=== PATIENT | female | born 1945 | race Caucasian/White ===

== ENCOUNTER → 2018-03-04 13:40 | Outpatient (CLI) | payer MEDICARE, OTHER, SELFPAY ==
[2018-01-07 14:41] VITALS: BMI 30.7
--- NOTE | 2018-03-04 | DI.MG.S_ITS ---
BILATERAL DIGITAL SCREENING MAMMOGRAM 3D/2D WITH CAD: 03/04/2018 CLINICAL: Routine screening. Comparison is made to exams dated: 02/06/2017 mammogram, 02/02/2016 mammogram, and 01/26/2015 mammogram - [facility]. The tissue of both breasts is predominantly fatty. Current study was also evaluated with a Computer Aided Detection (CAD) system. No significant masses, calcifications, or other findings are seen in either breast. There has been no significant interval change. IMPRESSION: NEGATIVE There is no mammographic evidence of malignancy. A 1 year screening mammogram is recommended. This exam was interpreted at Station ID: [id number]. NOTE: For mammograms, a report in lay terms will be sent to the patient. Approximately 15% of breast malignancies will not be visualized mammographically. In the management of a palpable breast mass, a negative mammogram must not discourage biopsy of a clinically suspicious lesion. Electronically Signed By: Leandro babcock/elvi:03/04/2018 16:44:09 letter sent: Normal Exam ACR BI-RADS Category 1: Negative 3341F
== END ==
PROVIDERS: Family Provider Family Medicine; PCP Family Medicine; Visit Provider Family Medicine
DX: Z12.31 Encounter for screening mammogram for malignant neoplasm of breast (principal)
CPT/HCPCS: 77063; 77067

== ENCOUNTER → 2018-06-13 14:53 | Outpatient (CLI) | payer MEDICARE, OTHER, SELFPAY ==
[2018-01-07 14:41] VITALS: BMI 30.7
--- NOTE | 2018-06-13 | DI.RAD.S_ITS ---
PROCEDURE: XR SHOULDER RT MIN 2V INDICATIONS: Bursitis of right shoulder TECHNIQUE: 3 views of the shoulder were acquired. COMPARISON: None. FINDINGS: Bones: No fractures or dislocations. No suspicious bony lesions. Visualized ribs appear intact. Mild acromioclavicular and glenohumeral degenerative joint disease. Soft tissues: No suspicious soft tissue calcifications. IMPRESSION: Mild degenerative joint disease. Dictated by: Radu Alcaraz M.D. on 06/13/2018 at 16:08 Approved by: Radu Alcaraz M.D. on 06/13/2018 at 16:11
== END ==
PROVIDERS: PCP Family Medicine; Visit Provider Family Medicine
DX: M75.51 Bursitis of right shoulder (principal); M19.011 Primary osteoarthritis, right shoulder
CPT/HCPCS: 73030; 88305

== ENCOUNTER → 2019-01-23 15:46 | Outpatient (CLI) | payer MEDICARE, OTHER, SELFPAY ==
[2018-01-07 14:41] VITALS: BMI 30.7
[2019-01-23 16:23] LABS: BUN Creatinine Ratio 41.4 (6-22); Blood Urea Nitrogen 29 mg/dL (7-17); Estimated Glomerular Filt Rate > 60.0 mL/min (>60)
== END ==
PROVIDERS: Family Provider Family Medicine; PCP Family Medicine; Visit Provider Urology
DX: R31.0 Gross hematuria (principal)
CPT/HCPCS: 36415; 82565; 84520

== ENCOUNTER → 2019-01-31 08:55 | Outpatient (CLI) | payer MEDICARE, OTHER, SELFPAY ==
[2018-01-07 14:41] VITALS: BMI 30.7
--- NOTE | 2019-01-31 09:06 | DI.CT.S_ITS ---
PROCEDURE: CT ABDOMEN PELVIS WO/W CON INDICATIONS: Gross hematuria TECHNIQUE: Optional 5 mm thick noncontrast images acquired from the diaphragm to the symphysis pubis. After the administration of intravenous contrast, 5 mm thick images acquired from the diaphragm to the symphysis pubis after a 10-minute delay. 2 mm thick coronal and sagittal reformats were then performed of the kidneys and ureters. For radiation dose reduction, the following was used: automated exposure control, adjustment of mA and/or kV according to patient size. COMPARISON: [facility], CT, CT-IVP, 03/12/2008, 8:45. [facility], CT, IVP (ABD & PEL WWO CONTRAST), 07/30/2012, 11:33. FINDINGS: Image quality: Excellent. Lung bases: Likely atelectasis is seen at the left lung base. Heart size is normal. Urinary system: Both kidneys are normal in size, without hydronephrosis. On precontrast images, there is a 2 mm nonobstructing stone seen at the inferior pole the left kidney, as on series 2 image 29. No perinephric fat stranding. There is normal bilateral renal enhancement. A nonenhancing water density cyst is seen at the posterior aspect of the inferior pole of the left kidney that measures 3.5 cm. Renal calyces appear normal in morphology when filled with contrast. Opacified portions of both ureters demonstrate normal caliber. Bladder wall thickness is normal. No calcified bladder stones. There is mass effect upon the bladder from calcified uterine fibroids. Other solid organs: Liver is normal in size and enhancement. Incidental note is made of focal fatty infiltration adjacent to the falciform ligament, which is not regarded to be pathologic. Gallbladder wall is not thickened. Biliary system is non dilated. Pancreas enhances normally. Spleen is normal in size and enhancement. No adrenal nodules. Peritoneum and bowel: Bowel loops demonstrate normal wall thickness and caliber. No free fluid or air. Incidental note is made of a normal-appearing appendix. Diverticulosis is seen, without findings of active diverticulitis. Nodes and vessels: No retroperitoneal or mesenteric adenopathy by size criteria. Aorta and inferior vena cava are normal in size. Atherosclerotic calcification is noted. Abdominal wall: No ventral hernias. Pelvis: No pathologic free pelvic fluid. No inguinal hernias or adenopathy. Calcified uterine fibroids are seen, which demonstrate mass effect upon the bladder. Incidental note is again made of a lipoma on the right between the proximal femur and the ischial tuberosity. Bones: No suspicious bony lesions. No vertebral body compression fractures. Age-appropriate bony degenerative changes are seen, which are worst at the L5-S1 level. IMPRESSION: A 2 mm nonobstructing stone is seen at the inferior pole of the left kidney. No renal masses are seen. No ureteral masses or bladder masses can be seen. At the inferior pole of the left kidney, there is a simple cyst, without suspicious features, as before. Calcified uterine fibroids are seen, with associated mass effect upon the bladder. Incidental note is made of: Focal fatty liver infiltration Normal appendix Diverticulosis is seen, without findings of active diverticulitis. Focal L5-S1 degenerative change Right hip lipoma Dictated by: Saad Wilson M.D. on 01/31/2019 at 10:38 Approved by: Saad Wilson M.D. on 01/31/2019 at 10:43
[2019-01-31 09:26] LABS: BUN Creatinine Ratio 28.3 (6-22); Blood Urea Nitrogen 17 mg/dL (7-17); Estimated Glomerular Filt Rate > 60.0 mL/min (>60)
== END ==
PROVIDERS: Family Provider Family Medicine; PCP Family Medicine; Visit Provider Urology
DX: R31.0 Gross hematuria (principal); N20.0 Calculus of kidney; N28.1 Cyst of kidney, acquired; D17.39 Benign lipomatous neoplasm of skin and subcutaneous tissue of other sites; D25.9 Leiomyoma of uterus, unspecified; K57.90 Diverticulosis of intestine, part unspecified, without perforation or abscess without bleeding; M47.817 Spondylosis without myelopathy or radiculopathy, lumbosacral region; K76.0 Fatty (change of) liver, not elsewhere classified
CPT/HCPCS: 36415; 74178; 82565; 84520; Q9967

== ENCOUNTER → 2019-03-19 12:17 | Outpatient (CLI) | payer MEDICARE, OTHER, SELFPAY ==
[2018-01-07 14:41] VITALS: BMI 30.7
--- NOTE | 2019-03-19 | DI.MG.S_ITS ---
BILATERAL DIGITAL SCREENING MAMMOGRAM 3D/2D WITH CAD: 03/19/2019 CLINICAL: Routine screening. Comparison is made to exams dated: 03/04/2018 mammogram, 02/06/2017 mammogram, 02/02/2016 mammogram, and 01/26/2015 mammogram - [facility]. There are scattered fibroglandular elements in both breasts. Current study was also evaluated with a Computer Aided Detection (CAD) system. No significant masses, calcifications, or other findings are seen in either breast. There has been no significant interval change. IMPRESSION: NEGATIVE There is no mammographic evidence of malignancy. A 1 year screening mammogram is recommended. This exam was interpreted at Station ID: [id number]. NOTE: For mammograms, a report in lay terms will be sent to the patient. Approximately 15% of breast malignancies will not be visualized mammographically. In the management of a palpable breast mass, a negative mammogram must not discourage biopsy of a clinically suspicious lesion. Electronically Signed By: Alban nuñez/elvi:03/20/2019 12:35:03 letter sent: Normal Exam ACR BI-RADS Category 1: Negative 3341F
== END ==
PROVIDERS: Family Provider Family Medicine; PCP Family Medicine; Visit Provider Family Medicine
DX: Z12.31 Encounter for screening mammogram for malignant neoplasm of breast (principal)
CPT/HCPCS: 77063; 77067

== ENCOUNTER 2019-05-22 09:25 | Day surgery (SDC) | payer MEDICARE, OTHER, SELFPAY ==
[2018-01-07 14:41] VITALS: BMI 30.7
[2019-05-15 13:46] VITALS: BMI 30.7
[2019-05-22] VITALS (8 sets, daily range): BP systolic 105–134; BP diastolic 62–79; PULSE 75–81; RESP 15–16; TEMP 36.1–36.4; O2SAT 93–98; BMI 29.5
--- NOTE | 2019-05-22 | PATH_ITS ---
[facility] Accession Number: [id number] . 01 Material submitted: . uterus - UTERUS, BILATERAL FALLOPIAN TUBES AND BILATERAL OVARIES . 02 Diagnosis: Uterus, Bilateral Fallopian Tubes and Bilateral Ovaries, Laparoscopic Supracervical Hysterectomy with Bilateral Salpingo-oophorectomy (Weight Morcellated Specimen 69 grams): Endometrium with features of cystic atrophy; negative for glandular hyperplasia, cytologic atypia, and malignancy. Myometrium with multile intramural leiomyomas (0.2-2.5 cm in greatest dimension). Ovaries with benign inclusions and rare follicular cysts. Fallopian tubes x2 with no significant histomorphologic abnormality. Negative for atypia or malignancy. [facility] 05/26/2019 1546 Local . 02 Electronically signed: . Anabella Florentino MD, Pathologist NPI- [id number] . 01 Gross description: . Received in formalin, labeled uterus, bilateral fallopian tubes and ovaries, is a morcellated uterus (69 grams, 9.5 x 8.3 x 3.2 cm in aggregate), two ovaries (ovary #1-2.5 x 0.9 x 0.5 cm; ovary #2-2.3 x 1.0 x 0.7 cm), and two fimbriated fallopian tubes (tube #1: length-5.5 cm, diameter-0.3 cm; tube #2: length-5.6 cm, diameter-0.3 cm). The cervix is absent. The specimen cannot be oriented and the endometrium and myometrium cannot be grossly measured. The parenchyma is rai and contains multiple solid firm white whorled well-circumscribed homogeneous nodules (0.2 x 0.2 x 0.1 cm-2.5 x 2.3 x 2.0 cm). The ovaries have pale yellow shiny bosselated serosa and rai-yellow solid firm parenchyma. The fallopian tubes have rai smooth shiny serosa and rai unremarkable lumens. Section code: (A1-A5) uterine parenchyma, retail account representative; (A6) ovary #1, retail account representative serial sections; (A7) ovary #2, retail account representative serial sections; (A8) fallopian tube #1, retail account representative serial sections; (A9) fimbria #1, bivalved, entirely submitted; (A10) fallopian tube #2, retail account representative serial sections; (A11) fimbria #2, bivalved, entirely submitted. ([id number]) /MRV 05/23/2019 1244 Local . 02 Pathologist provided ICD-10: D25.9 . 02 CPT . 467517 Specimen Comment: A duplicate report has been generated due to demographic updates. Performed at: 01 [facility] [address] [id number] MD Leandro Conroy MD Phone: [phone] Performed at: 02 [facility] [address] [place] [id number] MD Harika Jackson MD Phone: [phone]
[2019-05-22] MEDS: LACTATED RINGERS 1,000 ML 100 ML IV ×2 (10:20→13:44)
--- NOTE | 2019-05-22 10:35 | PM.PREOP ---
Pre-operative Note Interval Note History & Physical reviewed/Exam performed by Physician: Yes Changes to H&P: No
[2019-05-22] MEDS: CEFAZOLIN 2 GM/100 ML FROZ.PIGGY IV (10:39)
--- NOTE | 2019-05-22 11:24 | SUR.OPER ---
Lithotomy on padded OR bed. Hollis Pad Positioner under torso. Head on pillow, arms padded and tucked at sides. Legs secured in padded yellow fins stirrups.
[2019-05-22] MEDS: BUPIVACAINE 0.5% W/ EPI (PF) VIAL 30 ML INJ (11:29)
[2019-05-22] MEDS: ACETAMINOPHEN IV 1,000 MG/100 ML VIAL 400 MG IV (11:30)
[2019-05-22] MEDS: ROPIVACAINE 0.2% PF 2 MG/ML 10ML AMP 20 ML INJ (11:30)
--- NOTE | 2019-05-22 12:49 | SUR.PHASEI ---
Per Dr. Redmond, pt will be d/c'd home, hastings is to be d/c'd and pt. is to void prior to d/c home. Will continue to monitor pt. for void.
--- NOTE | 2019-05-22 12:55 | SUR.PHASEI ---
pt up to BSC at this time, attempting to void due to sensation
--- NOTE | 2019-05-22 13:03 | SUR.PHASEI ---
Pt. cont's to have the 'urge' to void but cannot yet. IV fluids will continue
--- NOTE | 2019-05-22 13:11 | SUR.PHASEI ---
pt. up to BSC approx. 10 min., no void as of yet, assisted back to bed and IVF will continue.
[2019-05-22] MEDS: OXYCODONE/ACETAMINOPHEN 5/325 TABLET 1 TAB PO (13:33)
--- NOTE | 2019-05-22 13:56 | SUR.PHASEII ---
report given to Westley Mclaughlin RN
--- NOTE | 2019-05-22 14:23 | SUR.PHASEII ---
Phase 2 note: patient ambulated to bathroom. Gait steady. Mild cramping discomfort. Voided Clear yellow urine 350 ml without difficulty. Stable to dress for discharge to home. at bedside. Arnoldo WELLER, RN-BC
--- NOTE | 2019-05-22 14:46 | SUR.PHASEII ---
Phase 2 discharge note: Discharge instructions reviewed with patient and with good understanding. Tolerated PO without nausea. Pain level 2/10. Mild cramping. IV d/c'd canula intact. Discharge to home, wheelchair to car home with .
--- NOTE | 2019-05-25 14:18 | PM.GYNOP.1 ---
Operative Date/Time/Diagnoses Date of procedure: 05/22/19 Time of procedure: 12:30 Pre-op diagnosis: Fibroid uterus Pelvic pain Post-op diagnosis: same Procedure & Clinicians Procedure: Procedures Operation Date: 05/22/19 10:45 Actual Procedures Side Surgeon p Laparoscopic Supracervical Hysterectomy w/ bilateral salpingo-oophrectomy Maral Redmond MD Indications: Fibroid year Pelvic pain Surgeon: Maral Redmond Helicopter Utility Aircrewman: Klaudia Jeff Anesthesia Type: General Operative Notes Findings: 9 week size multi fibroid uterus Normal tubes and ovaries Normal liver and gallbladder Closure Type: primary Specimen(s): left tube & ovary, right tube & ovary and uterus Applied: catheter (Removed at the end of the case) Estimated blood loss (mL): 75 Blood products transfused: none Procedure in detail: The patient was taken to the operating room where she was placed in the dorsal supine position. After adequate general endotracheal anesthesia was achieved, she was placed in the dorsal lithotomy position, and prepped and draped in the usual sterile fashion. A timeout was performed. A bivalve speculum was placed into the vagina and the anterior lip of the cervix grasped with a single-tooth tenaculum. The cervical os was sequentially dilated until the ZUMI uterine manipulator could pass easily into the endometrial cavity. The single-tooth tenaculum was removed from the anterior lip of the cervix, and the bivalve speculum was removed from the vagina. Attention was then turned to the abdomen where 6 mL of half percent Marcaine with epinephrine were injected in the umbilical fold. A 5 mm incision was made. The veress needle was placed into the peritoneal cavity, and its placement confirmed by aspiration and drop test. The veress needle was removed. A 5 mm trocar was placed without difficulty. 2 other incisions were made midway between the pubic symphysis and umbilicus after 5 mL of half percent Marcaine with epinephrine were injected. These were 5 mm incisions. Two, 5 mm trochars were placed under direct visualization. The right tube and ovary were grasped with an atraumatic grasper. Using the plasma kinetic with settings of 40 W the utero-ovarian vessels were cauterized and then cut on the right side. The cornua of the uterus was then grasped with an atraumatic grasper. The round ligament and broad ligament were cauterized and cut with plasma kinetic. Hemostasis was achieved. The bladder flap was created using the plasma kinetic with cautery and cut longterm across. The uterine arteries on the right side were extensively cauterized with plasma kinetic. All of this was repeated on the left side. The remainder of the bladder flap was created using the plasma kinetic, and the bladder taken down off the lower uterine segment and cervix. Using the [place], the cervix was amputated from the uterus 2 cm above the uterosacral ligaments, after the ZUMI uterine manipulator was removed from the uterus and a moistened sponge stick was placed in the vagina. There was a small amount of bleeding noted from the posterior and left edge of the cervix, and this was cauterized for hemostasis. 6 mL of half percent Marcaine with epinephrine were injected above the pubic symphysis. A 12mm incision was made. A 12 mm trocar was placed under direct visualization. The trochar was removed. An Endobag was placed through the suprapubic incision and the uterus and tubes and ovaries were placed into the Endobag. The uterus was morcellated in approximately 6 pieces. The tubes and ovaries were also removed from the Endobag. The Endobag was removed from the peritoneal cavity. The pelvis was copiously irrigated with warm normal saline. No bleeding was noted. 20 mL of 0.2% ropivacaine were placed over the pelvic pedicles. The instruments were removed from the abdomen. The CO2 was allowed to escape. The suprapubic incision was closed on the fascia with 0 Vicryl. All of the incisions were closed with 4-0 undyed Biosyn in a subcuticular fashion. Steri strips, 2x2's and op sites were placed over the incisions. The moistened sponge stick was removed from the vagina. Sponge, lap, and instrument counts were correct x 2. The patient tolerated the procedure well, was taken to PACU in stable condition. Complications: none Post-operative Condition: stable Disposition: PACU Plan for aftercare: Home after recovery
== END 2019-05-22 14:46 | disposition home or self-care (01) ==
LOC: OR 12:26 → AC 12:27
PROVIDERS: PCP Family Medicine; Visit Provider Obstetrics & Gynecology
PROC: 0UT94ZL Resection of Uterus, Supracervical, Percutaneous Endoscopic Approach (ICD-10-PCS; CPT 58542; principal; 2019-05-22 10:45)
DX: D25.9 Leiomyoma of uterus, unspecified (principal)
CPT/HCPCS: 58542; J0131; J0690; J1100; J2250; J2405; J2704; J2710; J2795; J3010

== ENCOUNTER 2019-11-03 08:33 | Day surgery (SDC) | payer MEDICARE, OTHER, SELFPAY ==
[2018-01-07 14:41] VITALS: BMI 30.7
--- NOTE | 2019-11-03 08:55 | PM.HP.1 ---
History of Present Illness History of Present Illness Date Patient Seen: 11/03/19 Time Patient Seen: 08:55 Chief complaint: 13727 Narrative: Patient presents for colorectal screening. They had previous colonoscopy in 2013 notable for adenomatous polyps which were removed.. No personal or family history of colon cancer. On further history denies any recent gastrointestinal symptoms. No nausea, vomiting, abdominal pain, loss of appetite, unexplained weight loss, change in bowel habits, diarrhea, constipation, melena, hematochezia, or bright red blood per rectum. Patient History Medical History 1st degree AV block (Chronic) Arthritis (Chronic) Back pain (Chronic) Bladder polyp (Chronic) Cataracts, bilateral (Chronic ~2008) Cervical spine fracture (Resolved) Chicken pox (Resolved) Colon polyps (Chronic ~2013) Fibroids (Inactive) Fractures (Resolved ~1981) Hearing loss (Chronic ~2008) Heavy menstrual period (Resolved) Hematuria (Chronic ~2018) Hypertension (Chronic ~1999) Impaired vision (Chronic) Incontinence (Chronic) Interstitial cystitis (Chronic) Measles (Resolved) Melanoma (Chronic) Melanoma (Inactive ~2004) Painful menstrual periods (Resolved) Skin cancer (Inactive ~2004) Sleep apnea (Chronic ~2017) Tinnitus (Chronic ~1999) Urinary frequency (Chronic) Urinary urgency (Chronic) Surgical History Anesthesia (Resolved) Arm fracture, left (Resolved) H/O total knee replacement (Resolved) History of bilateral salpingo-oophorectomy (Acute ~05/22/19) History of hysteroscopy (Resolved ~04/2014) History of third molar tooth extraction (Resolved) History of total knee replacement (Resolved ~12/2017) Perforated eardrum (Resolved ~02/2017) S/P bunionectomy (Resolved) S/P excision of lipoma (Resolved) S/P laparoscopic supracervical hysterectomy (Acute ~05/22/19) S/P left knee arthroscopy (Resolved) Status post dilation and curettage (Resolved) Status post dilation and curettage (Resolved 05/15/14) Family & Social History Family History Father Cancer Mother Stroke Brother Parkinson's disease Social History: household members spouse Tobacco & Substance use: Smoking Status Never smoker alcohol intake current alcohol intake frequency 0-2 drinks per day Substance Use Type does not use Meds Home Medications and Allergies Home Medications Medication Instructions Recorded Confirmed Type Elmiron 100 mg PO BID #0 07/04/17 11/03/19 History amitriptyline 50 mg PO HS #0 07/04/17 11/03/19 History amlodipine [Norvasc] 5 mg PO QDAY #0 07/04/17 11/03/19 History lovastatin 20 mg PO QDAY #0 07/04/17 11/03/19 History tamsulosin [Flomax] 0.4 mg PO BEDTIME #0 07/04/17 11/03/19 History aspirin 81 mg PO BEDTIME 01/02/18 11/03/19 History Calcium 500 500 mg PO BID 01/07/18 11/03/19 History biotin 5,000 mcg PO QDAY 01/07/18 11/03/19 History cholecalciferol (vitamin D3) 2,000 units PO QDAY 01/07/18 11/03/19 History Allergies Allergy/AdvReac Type Severity Reaction Status Date / Time No Known Allergies Allergy Verified 07/14/19 13:58 Review of Systems Review of Systems Narrative: A 10 point review of systems is negative except as noted in the HPI Exam Narrative Exam Narrative: General-no acute distress, well nourished HEENT-moist mucous membranes, no scleral icterus Neck-supple, no lymphadenopathy Chest- non labored respirations, clear to auscultation bilaterally Cardiac-regular rate no peripheral edema Abdomen-soft, nontender, non distended Extremities-warm, well perfused Neurological-alert and oriented, no focal deficits Assessment & Plan Assessment and plan (1) Screening for colon cancer: Current visit: Yes Status: Acute Assessment & Plan narrative: The patient requires colorectal screening and colonoscopy is recommended. Technical details were discussed. Risks, benefits, alternatives explained. Risks including but not limited to myocardial infarction, aspiration, bleeding, pain, missed lesion, incomplete examination, need for further radiographic studies, colonic perforation, and need for major abdominal surgery were discussed. All questions were answered to their satisfaction, and they are in agreement with this plan.
[2019-11-03 09:06] VITALS: BP 119/76; PULSE 83; RESP 16; TEMP 36.6; O2SAT 93; BMI 28.7
[2019-11-03] MEDS: SODIUM CHLORIDE 0.9% 1,000 ML 200 ML IV (09:21)
--- NOTE | 2019-11-03 10:25 | PM.OP.ENDO ---
Operative Date/Time/Diagnoses Date of procedure: 11/03/19 Time of procedure: 10:25 Pre-op diagnosis: Screening, history of adenomas polyp Post-op diagnosis: same Procedure & Clinicians Study performed: Incomplete colonoscopy Same procedure as scheduled: Yes Indications: History of adenomatous polyps, last colonoscopy 5 years ago Surgeon: Trace Hooper Procedure Notes SCOAP/Timeout: Performed Procedure in detail: Patient placed in left lateral decubitus position. Time out was performed. Procedural sedation was administered with Versed and Fentanyl. A rectal exam demonstrated no external hemorrhoids no internal masses. Colonoscopy scope was placed into the rectum. The sigmoid colon was extremely tortuous. A stiffener was placed into the scope, her position was manipulated irrigation was used but despite these measures I was unable to advanced through the sigmoid colon safely. After multiple attempts the procedure was aborted. Sedation minutes: 20 Findings: other findings (Tortuous sigmoid) Specimen(s): none sent Complications: none Impression: Incomplete colonoscopy Post-procedure Recommendations: Other recommendation (Barium enema) Disposition: same day surgery
[2019-11-03] MEDS: fentaNYL 250 MCG/5 ML INJ IV (10:28)
[2019-11-03] MEDS: MIDAZOLAM 5 MG/5 ML VIAL IV (10:28)
[2019-11-03 10:30] VITALS: BP 129/77; PULSE 79; RESP 15; TEMP 37.2; O2SAT 92
[2019-11-03 10:35] VITALS: BP 133/73; PULSE 77; RESP 16; O2SAT 94
[2019-11-03 10:50] VITALS: BP 131/76; PULSE 74; RESP 19; O2SAT 93
[2019-11-03 11:20] VITALS: BP 117/70; PULSE 73; RESP 16; TEMP 36.2; O2SAT 94
== END 2019-11-03 11:20 | disposition home or self-care (01) ==
PROVIDERS: PCP Family Medicine; Referring Provider Family Medicine; Visit Provider Surgery
PROC: 0DJD8ZZ Inspection of Lower Intestinal Tract, Via Natural or Artificial Opening Endoscopic (ICD-10-PCS; CPT 45378; principal; 2019-11-03 10:00)
DX: Z12.11 Encounter for screening for malignant neoplasm of colon (principal); Z86.010 Personal history of colon polyps; Z53.09 Procedure and treatment not carried out because of other contraindication
CPT/HCPCS: G0105; 99152; J2250; J3010

== ENCOUNTER → 2019-11-14 08:05 | Outpatient (CLI) | payer MEDICARE, OTHER, SELFPAY ==
[2018-01-07 14:41] VITALS: BMI 30.7
--- NOTE | 2019-11-14 08:07 | DI.RAD.S_ITS ---
PROCEDURE: FL BARIUM ENEMA W AIR CONTRAST INDICATIONS: Incomplete colonoscopy COMPARISON: None. FINDINGS: KUB: Pre-procedural clerk general office film demonstrates a normal bowel gas pattern. No suspicious abdominal calcifications. Visualized solid organ contours are normal in size. No suspicious bony lesions. Colon: There is adequate air-contrast opacification from the rectum to the cecum. No gross strictures, ulcers, polyps, or masses are seen. Mild to moderate colonic diverticulosis is seen particularly involving sigmoid colon. Haustral folds are normal in thickness throughout. No diverticula. IMPRESSION: Mild to moderate colonic diverticulosis. No gross stricture or polyps are seen in the colon. Dictated by: Albin Duggan M.D. on 11/14/2019 at 9:54 Approved by: Albin Duggan M.D. on 11/14/2019 at 10:08
== END ==
PROVIDERS: PCP Family Medicine; Referring Provider Surgery; Visit Provider Surgery
DX: Z12.11 Encounter for screening for malignant neoplasm of colon (principal); K57.30 Diverticulosis of large intestine without perforation or abscess without bleeding
CPT/HCPCS: 74280

== ENCOUNTER → 2020-03-22 11:24 | Outpatient (CLI) | payer MEDICARE, OTHER, SELFPAY ==
[2018-01-07 14:41] VITALS: BMI 30.7
--- NOTE | 2020-03-22 | DI.MG.S_ITS ---
BILATERAL DIGITAL SCREENING MAMMOGRAM 3D/2D WITH CAD: 03/22/2020 CLINICAL: Routine screening. Comparison is made to exams dated: 03/19/2019 mammogram, 03/04/2018 mammogram, and 02/06/2017 mammogram - [facility]. There are scattered fibroglandular elements in both breasts. Current study was also evaluated with a Computer Aided Detection (CAD) system. No significant masses, calcifications, or other findings are seen in either breast. There has been no significant interval change. IMPRESSION: NEGATIVE There is no mammographic evidence of malignancy. A 1 year screening mammogram is recommended. This exam was interpreted at Station ID: [id number]. NOTE: For mammograms, a report in lay terms will be sent to the patient. Approximately 15% of breast malignancies will not be visualized mammographically. In the management of a palpable breast mass, a negative mammogram must not discourage biopsy of a clinically suspicious lesion. Electronically Signed By: Mariel dailey/elvi:03/22/2020 13:27:41 letter sent: Normal Exam ACR BI-RADS Category 1: Negative 3341F
== END ==
PROVIDERS: PCP Family Medicine; Referring Provider Family Medicine; Visit Provider Family Medicine
DX: Z12.31 Encounter for screening mammogram for malignant neoplasm of breast (principal)
CPT/HCPCS: 77063; 77067

== ENCOUNTER → 2021-03-25 10:18 | Outpatient (CLI) | payer MEDICARE, OTHER, SELFPAY ==
[2018-01-07 14:41] VITALS: BMI 30.7
--- NOTE | 2021-03-25 | DI.MG.S_ITS ---
BILATERAL DIGITAL SCREENING MAMMOGRAM 3D/2D WITH CAD: 03/25/2021 CLINICAL: Routine screening. Comparison is made to exams dated: 03/22/2020 mammogram, 03/19/2019 mammogram, 03/04/2018 mammogram, and 02/06/2017 mammogram - [facility]. There are scattered fibroglandular elements in both breasts. Current study was also evaluated with a Computer Aided Detection (CAD) system. There is possible developing architectural distortion in the left breast middle depth central to the nipple seen on the mediolateral oblique view only. No other significant masses, calcifications, or other findings are seen in either breast. IMPRESSION: INCOMPLETE: NEEDS ADDITIONAL IMAGING EVALUATION The possible developing architectural distortion in the left breast is indeterminate. Additional views with possible ultrasound are recommended. This exam was interpreted at Station ID: [id number]. NOTE: For mammograms, a report in lay terms will be sent to the patient. Approximately 15% of breast malignancies will not be visualized mammographically. In the management of a palpable breast mass, a negative mammogram must not discourage biopsy of a clinically suspicious lesion. Electronically Signed By: Seamus Rios M.D. [facility] [place]/:03/25/2021 15:30:50 letter sent: Additional Imaging Needed ACR BI-RADS Category 0: Incomplete 3340F
== END ==
PROVIDERS: PCP Family Medicine; Referring Provider Family Medicine; Visit Provider Family Medicine
DX: Z12.31 Encounter for screening mammogram for malignant neoplasm of breast (principal)
CPT/HCPCS: 77063; 77067

== ENCOUNTER → 2021-03-29 10:36 | Outpatient (CLI) | payer MEDICARE, OTHER, SELFPAY ==
[2018-01-07 14:41] VITALS: BMI 30.7
--- NOTE | 2021-03-29 | DI.RAD.S_ITS ---
PROCEDURE: XR LUMBAR SPINE 2-3V INDICATIONS: M54.2 TECHNIQUE: 3 views of the lumbar spine were acquired. COMPARISON: [facility], CT, CT ABDOMEN PELVIS WO/W CON, 01/31/2019, 9:22. FINDINGS: Bones: 5 [id number] vertebrae are present. Trace levo curvature centered at the T12 level. Trace multilevel retrolisthesis. Multilevel disc degeneration, severe at the L5-S1 level. Moderate L4-L5 and L5-S1 facet joint arthropathy. No vertebral body compression fractures. No suspicious bony lesions. Soft tissues: Overlying bowel gas pattern is normal. No suspicious soft tissue calcifications. IMPRESSION: Multilevel spondylosis, most notably at the L5-S1 level. Dictated by: Zack Ibrahim RR Interpreted: Ari Garcia MD on 03/29/2021 at 12:07 Transcribed by: NEREIDA on 03/29/2021 at 12:08 Approved by: Ari Garcia M.D. on 03/29/2021 at 15:38
--- NOTE | 2021-03-29 | DI.RAD.S_ITS ---
PROCEDURE: XR CERVICAL SPINE 2V OR 3V INDICATIONS: M54.5 TECHNIQUE: 3 view(s) of the cervical spine were acquired. COMPARISON: None. FINDINGS: Bones: No fractures or dislocations to the T1 level. The lateral masses of C1 are poorly visualized and cannot be evaluated.. No suspicious bony lesions. Severe C4-C5, C5-C6, C6-C7 and C7-T1 degenerative disc disease. Mild C2-C3 and C3-C4 degenerative disc disease. Moderate C2-C3, C3-C4, C4-C5, C5-C6, C6-C7 and C7-T1 degenerative disc disease. Soft tissues: No prevertebral soft tissue swelling. IMPRESSION: 1. Multilevel degenerative disc disease. 2. Multilevel facet arthropathy. 3. No acute osseous lesion. If symptoms and/or clinical suspicion for pathology persists, evaluation with MRI should be considered for further assessment. Dictated by: Earlene Williamson MD, PhD on 03/29/2021 at 14:34 Approved by: Earlene Williamson MD, PhD on 03/29/2021 at 14:36
== END ==
PROVIDERS: PCP Family Medicine; Referring Provider Family Medicine; Visit Provider Family Medicine
DX: M50.31 Other cervical disc degeneration, high cervical region (principal); M47.812 Spondylosis without myelopathy or radiculopathy, cervical region; M54.5 Low back pain; M47.817 Spondylosis without myelopathy or radiculopathy, lumbosacral region
CPT/HCPCS: 72040; 72100

== ENCOUNTER → 2021-04-21 12:37 | Outpatient (CLI) | payer MEDICARE, OTHER, SELFPAY ==
[2018-01-07 14:41] VITALS: BMI 30.7
--- NOTE | 2021-04-21 12:39 | DI.MG.S_ITS ---
UNILATERAL LEFT DIGITAL DIAGNOSTIC MAMMOGRAM 3D/2D WITH ADDITIONAL VIEWS: 04/21/2021 CLINICAL: Additional evaluation requested from prior study. Comparison is made to exams dated: 03/25/2021 mammogram, 03/22/2020 mammogram, 03/04/2018 mammogram, and 03/19/2019 mammogram - [facility]. There are scattered fibroglandular elements in left breast. The previously described possible developing architectural distortion in the left breast middle depth central to the nipple seen on the mediolateral oblique view only is not reproduced and presumably represented superimposed breast tissue. No other significant masses or calcifications are seen in the breast. IMPRESSION: INCOMPLETE: NEEDS ADDITIONAL IMAGING EVALUATION The previously described possible architectural distortion disperses with additional views and is consistent with summation artifact. A 1 year screening mammogram is recommended. Findings and recommendations were conveyed to the patient during today's evaluation. This exam was interpreted at Station ID: [id number]. NOTE: For mammograms, a report in lay terms will be sent to the patient. Approximately 15% of breast malignancies will not be visualized mammographically. In the management of a palpable breast mass, a negative mammogram must not discourage biopsy of a clinically suspicious lesion. Electronically Signed By: Jesse Lainez M.D. aty/:04/21/2021 13:28:57 letter sent: Clinical Evaluation ACR BI-RADS Category 0: Incomplete 3340F
== END ==
PROVIDERS: PCP Family Medicine; Referring Provider Family Medicine; Visit Provider Family Medicine
DX: R92.8 Other abnormal and inconclusive findings on diagnostic imaging of breast (principal)
CPT/HCPCS: 77065; G0279

== ENCOUNTER 2021-10-22 08:29 | Emergency (ER) | payer MEDICARE, OTHER, SELFPAY ==
[2018-01-07 14:41] VITALS: BMI 30.7
--- NOTE | 2021-10-22 08:33 | ED_ITS ---
HPI - Chest Pain General Chief Complaint: Chest Pain Stated Complaint: Pain under breasts, peeing blood Time Seen by Provider: 10/22/21 08:33 Source: patient and old records reviewed Mode of arrival: Ambulatory Limitations: no limitations Limitations: no limitations History of Present Illness HPI narrative: This is a 76-year-old female comes in with complaint of epigastric pain underneath her breast across her upper abdomen as well as hematuria but that was yesterday at 3:00 p.m.. Patient states she had discomfort the last about 15 or 20 minutes. She states it did not radiate. She did have any diaphoresis, no shortness of breath, no nausea or vomiting. She did note shortly after she had an episode of hematuria which has persisted. Patient has had some chronic low back discomfort and suprapubic discomfort but states this is not atypical. She states she has a history of interstitial cystitis and is on Elmiron but states she has had negative cystoscopies with her current urologist, Dr. Barragan. She does note that she had a bladder polyp that was removed remotely by her prior urologist many years ago who was diagnosed her with the interstitial cystitis. Not had any dysuria, urgency or frequency. She has an appreciate any diarrhea constipation or any melena or hematochezia. She has not appreciated any vaginal bleeding or discharge. She does take a baby aspirin daily, medication for hypertension, dyslipidemia, Celebrex daily as well as Flomax. No known drug allergies. No tobacco, alcoholic drink daily, no illicit. She is accompanied by her spouse. Dr. Man is her primary care. Related Data Home Medications Medication Instructions Recorded Confirmed amitriptyline 50 mg tablet 50 mg PO HS #0 07/04/17 08/04/20 amlodipine 5 mg tablet (Norvasc) 5 mg PO QDAY #0 07/04/17 08/04/20 lovastatin 20 mg tablet 20 mg PO QDAY #0 07/04/17 08/04/20 pentosan polysulfate sodium 100 mg 100 mg PO BID #0 07/04/17 08/04/20 capsule (Elmiron) tamsulosin 0.4 mg capsule (Flomax) 0.4 mg PO BEDTIME #0 07/04/17 08/04/20 aspirin 81 mg tablet,delayed 81 mg PO BEDTIME 01/02/18 08/04/20 release Calcium 500 500 mg PO BID 01/07/18 08/04/20 biotin 5,000 mcg PO QDAY 01/07/18 08/04/20 cholecalciferol (vitamin D3) 2,000 units PO QDAY 01/07/18 08/04/20 Previous Rx's Medication Instructions Recorded diphth,pertus(acell),tetanus 2.5 0.5 ml IM ONCE #0.5 ml 08/04/20 Lf unit-8 mcg-5 Lf/0.5 mL IM susp (Boostrix Tdap) cephalexin 500 mg capsule 500 mg PO BID #10 cap 10/22/21 fluconazole 150 mg tablet 150 mg PO Q3D #2 tab 10/22/21 (Diflucan) Allergies Allergy/AdvReac Type Severity Reaction Status Date / Time No Known Allergies Allergy Verified 08/04/20 14:06 Review of Systems Review of Systems ROS Unobtainable: All systems reviewed & are unremarkable except as noted in HPI and below Patient History Medical History (Updated 10/22/21 @ 09:53 by Yara Abel DO) 1st degree AV block Arthritis Back pain Bladder polyp Cataracts, bilateral (~2008) Cervical spine fracture Chicken pox Colon polyps (~2013) Fibroids Fractures (~1981) Hearing loss (~2008) Heavy menstrual period Hematuria (~2018) Hypertension (~1999) Impaired vision Incontinence Interstitial cystitis Measles Melanoma Melanoma (~2004) Painful menstrual periods Skin cancer (~2004) Sleep apnea (~2017) Tinnitus (~1999) Urinary frequency Urinary urgency Surgical History Anesthesia Arm fracture, left H/O total knee replacement History of bilateral salpingo-oophorectomy (~05/22/19) History of hysteroscopy (~04/2014) History of third molar tooth extraction History of total knee replacement (~12/2017) Perforated eardrum (~02/2017) S/P bunionectomy S/P excision of lipoma S/P laparoscopic supracervical hysterectomy (~05/22/19) S/P left knee arthroscopy Status post dilation and curettage Status post dilation and curettage (05/15/14) Family History Father Cancer Mother Stroke Brother Parkinson's disease Social History household members: spouse Smoking Status: Never smoker alcohol intake: current Smoking Status: Never smoker alcohol intake frequency: 0-2 drinks per day Substance Use Type: does not use Exam Narrative Exam Narrative: GENERAL: Alert and oriented x three, female in no acute distress. HEENT: Head normocephalic, atraumatic, EOMI, pupils reactive, face symmetric, moist mucous membranes NECK: Supple, full range of motion CARDIOVASCULAR: Regular rate and rhythm without murmurs, rubs or gallops. RESPIRATORY: Breath sounds equal bilaterally, no wheezes rales or rhonchi. ABDOMEN: Soft, nontender. Normoactive bowel sounds all 4 quadrants. No gua rding or rebound, rigidity, no mass. Nondistended. : No CVA tenderness EXTREMITIES: Normal range of motion, no clubbing or edema. Neurovascularly intact NEUROLOGICAL: Cranial nerves II through XII grossly intact. Moving all extremities SKIN: Warm, dry, no petechiae, no rashes or lesions. Initial Vital Signs Initial Vital Signs: Vital Signs Pulse Rate 102 H 10/22/21 08:39 Blood Pressure 187/85 H 10/22/21 08:39 Pulse Oximetry 96 10/22/21 08:39 Course Orders Ordered: ED Orders 10/22/21 08:35 UA Complete [Urinalysis and Microscopic] Stat Urine Culture Stat 10/22/21 08:50 Complete Blood Count AUTO DIFF Stat Comprehensive Metabolic Panel Stat Lipase Stat Partial Thromboplastin Time Stat Prothrombin Time INR Stat Troponin & CK Cardiac Panel Stat 10/22/21 08:54 XR chest 1V Stat EKG-12 Lead Stat Vital Signs Vital signs: Vital Signs - 8 hr 10/22/21 08:39 10/22/21 08:40 10/22/21 09:00 Pulse Rate 102 H 103 H 87 Respiratory Rate 18 18 Blood Pressure 187/85 H 171/84 H Pulse Oximetry 96 96 10/22/21 09:01 10/22/21 10:15 Pulse Rate 94 H 83 Respiratory Rate 18 16 Blood Pressure 171/84 H 131/69 Pulse Oximetry 95 93 MDM - Chest Pain Lab Data Result diagrams: 10/22/21 08:50 10/22/21 08:50 Labs: Lab Results 10/22/21 10/22/2110/22/22 Range/Units 08:35 08:50 08:50 WBC 8.2 (4.5-11.0) X10^3/uL RBC 4.70 (4.0-5.2) X10^6/uL Hgb 14.3 (12.0-16.0) g/dL Hct 42.8 (36-46) % MCV 91.0 (80-100) fL MCH 30.4 (26-34) PG MCHC 33.4 (30-36) % RDW 14.4 (11.6-14.8) % Plt Count 259 (150-400) X10^3/uL Neut % (Auto) 73.6 (50-75) % Lymph % (Auto) 16.5 L (25-40) % [place] % (Auto) 7.3 (3-14) % Eos % (Auto) 1.9 L (2-4) % Baso % (Auto) 0.7 (0-2) % Neut # (Auto) 6000 (0387-4562) /uL Lymph # (Auto) 1300 (7711-9598) /uL [place] # (Auto) 600 (0-900) /uL Eos # (Auto) 200 (0-450) /uL Baso # (Auto) 100 (0-100) /uL PT 12.2 (10.1-12.7) SECONDS INR 1.1 (0.9-1.3) APTT 35 (26.4-36.2) SECONDS Sodium (137-145) mmol/L Potassium (3.4-5.1) mmol/L Chloride (98-107) mmol/L Carbon Dioxide (22-32) mmol/L BUN (7-17) mg/dL Creatinine (0.52-1.04) mg/dL Estimated GFR (>60) mL/min BUN/Creatinine Ratio (6-22) Glucose (80-110) mg/dL Calcium (8.4-10.2) mg/dL Total Bilirubin (0.2-1.3) mg/dL AST (14-36) IU/L ALT (<35) IU/L Alkaline Phosphatase (38-126) U/L Total Creatine Kinase (30-135) U/L CK-MB (CK-2) (<2.37) ng/mL CK-MB (CK-2) Rel Index (1.5-5.0) % Troponin I (0.01-0.034) ng/mL Total Protein (6.3-8.2) g/dL Albumin (3.5-5.0) g/dL Globulin (1.7-4.1) g/dL Albumin/Globulin Ratio (1.0-2.8) Lipase (23-300) U/L Urine Color Red Urine Appearance Cloudy Urine pH 5.5 (4.5-8.0) Ur Specific [place] <=1.005 (1.000-1.035) Urine Protein 2+ H (Negative) Urine Glucose (UA) Negative (Negative) g/dL Urine Ketones Negative (NEGATIVE) Urine Occult Blood 3+ H (Negative) Urine Nitrate Positive H (Negative) Urine Bilirubin Negative (NEGATIVE) Urine Urobilinogen 0.2 (0.2) E.U./dL Ur Leukocyte Esterase Negative (NEGATIVE) Urine RBC 30-100/hpf H (0-5/HPF) Urine WBC 1-5/hpf (0-5/HPF) Ur Squamous Epith Cells None seen (0-5/HPF) Urine Bacteria None seen (None) Ur Culture Indicated? Specimen cultured 10/22/21 Range/Units 08:50 WBC (4.5-11.0) X10^3/uL RBC (4.0-5.2) X10^6/uL Hgb (12.0-16.0) g/dL Hct (36-46) % MCV (80-100) fL MCH (26-34) PG MCHC (30-36) % RDW (11.6-14.8) % Plt Count (150-400) X10^3/uL Neut % (Auto) (50-75) % Lymph % (Auto) (25-40) % [place] % (Auto) (3-14) % Eos % (Auto) (2-4) % Baso % (Auto) (0-2) % Neut # (Auto) (4823-4340) /uL Lymph # (Auto) (9092-6924) /uL [place] # (Auto) (0-900) /uL Eos # (Auto) (0-450) /uL Baso # (Auto) (0-100) /uL PT (10.1-12.7) SECONDS INR (0.9-1.3) APTT (26.4-36.2) SECONDS Sodium 139 (137-145) mmol/L Potassium 3.9 (3.4-5.1) mmol/L Chloride 106 (98-107) mmol/L Carbon Dioxide 25 (22-32) mmol/L BUN 18 H (7-17) mg/dL Creatinine 0.62 (0.52-1.04) mg/dL Estimated GFR > 60.0 (>60) mL/min BUN/Creatinine Ratio 29.0 H (6-22) Glucose 104 (80-110) mg/dL Calcium 9.9 (8.4-10.2) mg/dL Total Bilirubin 0.5 (0.2-1.3) mg/dL AST 28 (14-36) IU/L ALT 22 (<35) IU/L Alkaline Phosphatase 76 (38-126) U/L Total Creatine Kinase 177 H (30-135) U/L CK-MB (CK-2) 1.22 (<2.37) ng/mL CK-MB (CK-2) Rel Index 0.7 L (1.5-5.0) % Troponin I < 0.012 (0.01-0.034) ng/mL Total Protein 8.3 H (6.3-8.2) g/dL Albumin 4.9 (3.5-5.0) g/dL Globulin 3.4 (1.7-4.1) g/dL Albumin/Globulin Ratio 1.4 (1.0-2.8) Lipase 40 (23-300) U/L Urine Color Urine Appearance Urine pH (4.5-8.0) Ur Specific [place] (1.000-1.035) Urine Protein (Negative) Urine Glucose (UA) (Negative) g/dL Urine Ketones (NEGATIVE) Urine Occult Blood (Negative) Urine Nitrate (Negative) Urine Bilirubin (NEGATIVE) Urine Urobilinogen (0.2) E.U./dL Ur Leukocyte Esterase (NEGATIVE) Urine RBC (0-5/HPF) Urine WBC (0-5/HPF) Ur Squamous Epith Cells (0-5/HPF) Urine Bacteria (None) Ur Culture Indicated? Imaging Data Chest x-ray: Radiologist's Impression: [address] [address] XRay Report Signed Patient: Jocy Gavin MR#: [id number] : 1945 Acct:[id number] Age/Sex: 76 / F Date of Service: 10/22/21 Loc: ED Accession Number: [id number] ?? Procedure: XR chest 1V Ordering Provider: Yara Abel D.O. PROCEDURE:? XR CHEST 1V ? INDICATIONS:? chest pain, hematuria ? TECHNIQUE:? One view of the chest was acquired.? ? COMPARISON:? None. ? FINDINGS:? ? Surgical changes and devices:? None.? ? Lungs and pleura:? Lungs are clear.? No pleural effusions or pneumothorax.? ? Mediastinum:? The cardiac contours are within normal limits. The aorta demonstrates calcification and tortuosity. ? Bones and chest wall:? No suspicious bony lesions.? Age-appropriate bony degenerative changes are seen. ? Overlying soft tissues appear unremarkable.? IMPRESSION:? ? Portable chest within normal limits. ? ? ? Dictated by: Saad Wilson M.D. on 10/22/2021 at 8:15 ? ? Approved by: Saad Wilson M.D. on 10/22/2021 at 8:16? ECG Data Attestation: I personally reviewed and interpreted this ECG as follows: Prior ECG tracings: available for review Interpretation: Sinus rhythm rate 87 WI 178 QRS of 94 and QTC of 433. No acute changes. Septal change. Patient has prior EKG from 05/16/2017 which appears similar to today's. MDM Narrative Medical decision making narrative: This is a 76-year-old female comes in complaint of epigastric pain and upper abdomen that resolved after Tums. Patient also noted that she had hematuria which is have persisted. Patient has had greater than 12 hours without any acute troponin or EKG changes and she has EKGs available comparison which appears similar from 2017. Reviewed risk versus benefit regarding chest pain workup patient has hematuria believe is likely secondary to infection she has hematuria as well as nitrates on her urine. At this time I would treat her as UTI. Discussed with patient she asked for printed prescription asks if she can also have a prescription for Diflucan as she often gets yeast infections afterwards and will be traveling. We discussed risks of travel and that if she has any persistent chest pain or reoccurring chest or epigastric pain does knee repeat evaluation. Patient and both at bedside expressed their understanding. Discharge Plan Departure Patient Disposition: Home Clinical Impression: Acute UTI Instructions: DI for Urinary Tract Infection (UTI) Activity Restrictions/Additional Instructions: Follow-up with your physician for recheck. If you have recurrent or frequent chest or upper abdominal discomfort I would recommend being re-evaluated. Your urine today is suspicious for infection I would treat you with any antibiotic. Urine cultures take 2-3 days to result. If you are on the incorrect antibiotic we can call in a new change. Prescription pritned. Please return for new or worsening chest pain, shortness of breath lightheadedness or passing out, increasing or large amounts of clot in your u rine, new abdominal, back or flank pain or other new or concerning symptoms. Prescriptions: New cephalexin 500 mg capsule 500 mg PO BID Qty: 10 0RF fluconazole [Diflucan] 150 mg tablet 150 mg PO Q3D Qty: 2 0RF Rx Instructions: may repeat second dose 72 hrs after first dose if symptoms persist No Action Elmiron 100 MG capsule 100 mg PO BID Qty: 0 0RF Rx Instructions: Ordered BID, taking qday as that is able to keep the interstitial cystitis under control amlodipine [Norvasc] 5 MG tablet 5 mg PO QDAY Qty: 0 0RF tamsulosin [Flomax] 0.4 MG capsule,extended release 24hr 0.4 mg PO BEDTIME Qty: 0 0RF lovastatin 20 MG tablet 20 mg PO QDAY Qty: 0 0RF Label Comments: Takes at dinner time amitriptyline 50 MG tablet 50 mg PO HS Qty: 0 0RF Label Comments: TAKES 3 50MG TABS AT HS Boostrix Tdap 2.5-8-5 Lf-mcg-Lf/0.5mL suspension 0.5 ml IM ONCE Qty: 0.5 0RF aspirin 81 MG tablet,delayed release (DR/EC) 81 mg PO BEDTIME 0RF Calcium 500 500 mg PO BID 0RF biotin 5,000 mcg PO QDAY 0RF cholecalciferol (vitamin D3) 2,000 units PO QDAY 0RF Referrals: Sundeep Man MD [Primary Care Provider] -
[2021-10-22 08:39] VITALS: BP 187/85; PULSE 102; O2SAT 96
[2021-10-22 08:40] VITALS: BP 171/84; PULSE 103; RESP 18; O2SAT 96
--- NOTE | 2021-10-22 08:54 | DI.RAD.S_ITS ---
PROCEDURE: XR CHEST 1V INDICATIONS: chest pain, hematuria TECHNIQUE: One view of the chest was acquired. COMPARISON: None. FINDINGS: Surgical changes and devices: None. Lungs and pleura: Lungs are clear. No pleural effusions or pneumothorax. Mediastinum: The cardiac contours are within normal limits. The aorta demonstrates calcification and tortuosity. Bones and chest wall: No suspicious bony lesions. Age-appropriate bony degenerative changes are seen. Overlying soft tissues appear unremarkable. IMPRESSION: Portable chest within normal limits. Dictated by: Saad Wilson M.D. on 10/22/2021 at 8:15 Approved by: Saad Wilson M.D. on 10/22/2021 at 8:16
[2021-10-22 09:00] VITALS: PULSE 87; RESP 18
[2021-10-22 09:01] VITALS: BP 171/84; PULSE 94; RESP 18; O2SAT 95; BMI 29.9
[2021-10-22 09:09] LABS: INR 1.1 (0.9-1.3); Prothrombin Time 12.2 SECONDS (10.1-12.7)
[2021-10-22 09:12] LABS: PTT Partial Thromboplastin Tim 35 SECONDS (26.4-36.2)
[2021-10-22 09:13] LABS: Alanine Aminotransferase 22 IU/L (<35); Albumin 4.9 g/dL (3.5-5.0); Albumin Globulin Ratio 1.4 (1.0-2.8); Alkaline Phosphatase 76 U/L (38-126); Aspartate Aminotransferase 28 IU/L (14-36); Bilirubin Total 0.5 mg/dL (0.2-1.3); Blood Urea Nitrogen 18 mg/dL (7-17); Calcium 9.9 mg/dL (8.4-10.2); Carbon Dioxide 25 mmol/L (22-32); Chloride 106 mmol/L (98-107); Creatine Kinase 177 U/L (30-135); Estimated Glomerular Filt Rate > 60.0 mL/min (>60); Globulin 3.4 g/dL (1.7-4.1); Glucose 104 mg/dL (80-110); HEMOLYSIS 20 (0-50); Lipase 40 U/L (23-300); Potassium 3.9 mmol/L (3.4-5.1); Sodium 139 mmol/L (137-145); Total Protein 8.3 g/dL (6.3-8.2)
[2021-10-22 09:14] LABS: Add Manual Diff / Slide Review NO; Basophils Absolute Auto 100 /uL (0-100); Basophils Percent Auto 0.7 % (0-2); Eosinophils Absolute Auto 200 /uL (0-450); Eosinophils Percent Auto 1.9 % (2-4); Hematocrit 42.8 % (36-46); Hemoglobin 14.3 g/dL (12.0-16.0); Lymphocytes Absolute Auto 1300 /uL (1100-4500); Lymphocytes Percent Auto 16.5 % (25-40); Mean Corpuscular HGB Conc 33.4 % (30-36); Mean Corpuscular Hemoglobin 30.4 PG (26-34); Monocytes Absolute Auto 600 /uL (0-900); Monocytes Percent Auto 7.3 % (3-14); Neutrophils Absolute Auto 6000 /uL (1500-7000); Neutrophils Percent Auto 73.6 % (50-75); Platelet Count 259 X10^3/uL (150-400); Red Cell Distribution Width 14.4 % (11.6-14.8); White Blood Cell Count 8.2 X10^3/uL (4.5-11.0)
[2021-10-22 09:25] LABS: Appearance Urine UA CLOUDY; Bilirubin Urine UA NEGATIVE (NEGATIVE); Color Urine UA RED; Glucose Urine UA NEGATIVE (Negative); Ketones Urine UA NEGATIVE (NEGATIVE); Leukocyte Esterase Urine UA NEGATIVE (NEGATIVE); Nitrite Urine UA POSITIVE (Negative); Occult Blood Urine UA 3+ (Negative); Protein Urine UA 2+ (Negative); Specific Gravity Urine UA <=1.005 (1.000-1.035); Urobilinogen Urine UA 0.2 E.U./dL (0.2)
[2021-10-22 09:25] LABS: Troponin I < 0.012 ng/mL (0.01-0.034)
[2021-10-22 09:29] LABS: RBC Urine 30-100/HPF (0-5/HPF); pH Urine UA 5.5 (4.5-8.0)
[2021-10-22 09:29] LABS: CKMB % Relative Index 0.7 % (1.5-5.0); Creatine Kinase MB 1.22 ng/mL (<2.37)
[2021-10-22 09:31] LABS: Bacteria Urine None Seen; Culture Indicated Urine Specimen Cultured; Squamous Epithelial Cell Urine None Seen (0-5/HPF); WBC Urine 1-5/HPF (0-5/HPF)
[2021-10-22 10:15] VITALS: BP 131/69; PULSE 83; RESP 16; O2SAT 93
== END 2021-10-22 10:17 | disposition home or self-care (01) ==
PROVIDERS: Emergency Provider Emergency Medicine; PCP Family Medicine
DX: N39.0 Urinary tract infection, site not specified (principal); R07.9 Chest pain, unspecified
CPT/HCPCS: 36415; 71045; 80053; 81001; 82550; 82553; 83690; 84484; 85025; 85610; 85730; 87086; 93005; 99284

== ENCOUNTER → 2022-04-17 11:06 | Outpatient (CLI) | payer MEDICARE, OTHER, SELFPAY ==
[2018-01-07 14:41] VITALS: BMI 30.7
--- NOTE | 2022-04-17 | DI.MG.S_ITS ---
BILATERAL DIGITAL SCREENING MAMMOGRAM 3D/2D WITH CAD: 04/17/2022 CLINICAL: Routine screening. Comparison is made to exams dated: 03/25/2021 mammogram, 03/22/2020 mammogram, 03/19/2019 mammogram, and 04/21/2021 mammogram - [facility]. There are scattered fibroglandular elements in both breasts. Current study was also evaluated with a Computer Aided Detection (CAD) system. No significant masses, calcifications, or other findings are seen in either breast. There has been no significant interval change. IMPRESSION: NEGATIVE There is no mammographic evidence of malignancy. A 1 year screening mammogram is recommended. Based on the Tyrer Cuzick model (a risk assessment model) the patient's lifetime risk is 2.8% and her 10 year risk is 0.0%. According to the ACR, ACS, and NCCN guidelines, an annual breast MRI exam along with mammogram is recommended if the patient's lifetime risk is 20% or greater. This exam was interpreted at Station ID: [id number]. NOTE: For mammograms, a report in lay terms will be sent to the patient. Approximately 15% of breast malignancies will not be visualized mammographically. In the management of a palpable breast mass, a negative mammogram must not discourage biopsy of a clinically suspicious lesion. Electronically Signed By: Qasim patel/elvi:04/17/2022 15:38:40 letter sent: Normal Exam ACR BI-RADS Category 1: Negative 3341F
== END ==
PROVIDERS: PCP Family Medicine; Referring Provider Family Medicine; Visit Provider Family Medicine
DX: Z12.31 Encounter for screening mammogram for malignant neoplasm of breast (principal)
CPT/HCPCS: 77063; 77067

== ENCOUNTER → 2022-06-19 10:02 | Outpatient (CLI) | payer MEDICARE, OTHER, SELFPAY ==
[2018-01-07 14:41] VITALS: BMI 30.7
--- NOTE | 2022-06-19 | DI.RAD.S_ITS ---
PROCEDURE: XR HIP W PEL IF DONE BILAT 2V INDICATIONS: BILATERAL HIP PAIN TECHNIQUE: AP pelvis with lateral view(s) of the both hip(s). COMPARISON: [facility], , HIP 2V LEFT, 03/18/2015, 10:45. FINDINGS: Bones: No pelvic ring disruption. [id number] bilateral hip and pubic symphysis degenerative changes. Partially visualized lumbosacral spondylosis. Soft tissues: No suspicious soft tissue calcifications. IMPRESSION: Xjwj-tz-wljrqkvs hip degenerative changes and pubic symphysis degenerative changes. If there is high concern for further derangement, consider MRI evaluation. Dictated by: Sim Mederos M.D. on 06/19/2022 at 11:27 Approved by: Sim Mederos M.D. on 06/19/2022 at 11:28
== END ==
PROVIDERS: PCP Family Medicine; Referring Provider Family Medicine; Visit Provider Family Medicine
DX: M25.551 Pain in right hip (principal); M25.552 Pain in left hip
CPT/HCPCS: 73521

== ENCOUNTER → 2023-04-25 13:27 | Outpatient (CLI) | payer MEDICARE, OTHER, SELFPAY ==
[2018-01-07 14:41] VITALS: BMI 30.7
--- NOTE | 2023-04-25 | DI.MG.S_ITS ---
BILATERAL DIGITAL SCREENING MAMMOGRAM 3D/2D WITH CAD: 04/25/2023 CLINICAL: Routine screening. Comparison is made to exams dated: 04/17/2022 mammogram, 03/25/2021 mammogram, and 03/22/2020 mammogram - [facility]. There are scattered areas of fibroglandular density in both breasts (category b / 25%-50% glandular tissue). Current study was also evaluated with a Computer Aided Detection (CAD) system. No significant masses, calcifications, or other findings are seen in either breast. There has been no significant interval change. IMPRESSION: NEGATIVE There is no mammographic evidence of malignancy. A 1 year screening mammogram is recommended. Based on the Tyrer Cuzick model (a risk assessment model) the patient's lifetime risk is 2.5% and her 10 year risk is 0.0%. According to the ACR, ACS, and NCCN guidelines, an annual breast MRI exam along with mammogram is recommended if the patient's lifetime risk is 20% or greater. This exam was interpreted at Station ID: [id number]. NOTE: For mammograms, a report in lay terms will be sent to the patient. Approximately 15% of breast malignancies will not be visualized mammographically. In the management of a palpable breast mass, a negative mammogram must not discourage biopsy of a clinically suspicious lesion. Electronically Signed By: Seamus guevara/elvi:04/25/2023 17:52:23 letter sent: Normal Exam ACR BI-RADS Category 1: Negative [id number]
== END ==
PROVIDERS: PCP Family Medicine; Referring Provider Family Medicine; Visit Provider Family Medicine
DX: Z12.31 Encounter for screening mammogram for malignant neoplasm of breast (principal)
CPT/HCPCS: 77063; 77067

== ENCOUNTER 2024-03-05 16:32 | Observation (INO) | payer MEDICARE, OTHER, SELFPAY ==
[2018-01-07 14:41] VITALS: BMI 30.7
[2024-03-05] VITALS (13 sets, daily range): BP systolic 126–163; BP diastolic 61–87; PULSE 73–83; RESP 12–18; TEMP 36.6–36.8; O2SAT 92–94; BMI 29.1
[2024-03-05 16:53] LABS: Add Manual Diff / Slide Review NO; Basophils Absolute Auto 100 /uL (0-100); Basophils Percent Auto 0.6 % (0-2); Eosinophils Absolute Auto 200 /uL (0-450); Eosinophils Percent Auto 1.5 % (2-4); Hematocrit 41.8 % (36-46); Hemoglobin 14.2 g/dL (12.0-16.0); Lymphocytes Absolute Auto 2200 /uL (1100-4500); Lymphocytes Percent Auto 17.7 % (25-40); Mean Corpuscular HGB Conc 33.9 % (30-36); Mean Corpuscular Hemoglobin 31.2 PG (26-34); Mean Corpuscular Volume 92.1 fL (80-100); Monocytes Absolute Auto 1000 /uL (0-900); Monocytes Percent Auto 7.9 % (3-14); Neutrophils Absolute Auto 9100 /uL (1500-7000); Neutrophils Percent Auto 72.3 % (50-75); Platelet Count 297 X10^3/uL (150-400); Red Blood Cell Count 4.54 X10^6/uL (4.0-5.2); Red Cell Distribution Width 14.1 % (11.6-14.8); White Blood Cell Count 12.6 X10^3/uL (4.5-11.0)
--- NOTE | 2024-03-05 17:04 | ED_ITS ---
HPI - Abdominal Pain <Luanne Wahl DO - Last Filed: 03/06/24 08:01> General Chief Complaint: Abdominal Pain Stated Complaint: abd pain Time Seen by Provider: 03/05/24 16:57 Source: patient Mode of arrival: Ambulatory History of Present Illness HPI narrative: Patient is a 78-year-old female history of hypertension presenting today with right lower quadrant pain. She reports that she was some pain yesterday however really localized in her right lower quadrant this morning. No nausea or vomiting fever. She still has her appendix. She has had decrease in appetite but did eat lunch today. No other symptoms Related Data Home Medications Medication Instructions Recorded Confirmed amitriptyline 50 mg tablet 50 mg PO HS ##0 07/04/17 03/05/24 amlodipine 5 mg tablet (Norvasc) 5 mg PO QDAY ##0 07/04/17 03/05/24 lovastatin 20 mg tablet 20 mg PO QDAY ##0 07/04/17 03/05/24 tamsulosin 0.4 mg capsule (Flomax) 0.4 mg PO BEDTIME ##0 07/04/17 03/05/24 aspirin 81 mg tablet,delayed 81 mg PO BEDTIME 01/02/18 03/05/24 release Calcium 500 500 mg PO BID 01/07/18 03/05/24 biotin 5,000 mcg PO QDAY 01/07/18 03/05/24 cholecalciferol (vitamin D3) 2,000 units PO QDAY 01/07/18 03/05/24 Allergies Allergy/AdvReac Type Severity Reaction Status Date / Time No Known Allergies Allergy Verified 03/05/24 16:41 Patient History <Luanne Wahl DO - Last Filed: 03/06/24 08:01> Medical History (Updated 03/05/24 @ 18:59 by Burke Townsend MD) Melanoma (~2004) Sleep apnea (~2018) Fractures (~1981) Measles Chicken pox Tinnitus (~1999) Cataracts, bilateral (~2008) Painful menstrual periods Heavy menstrual period Fibroids Hematuria (~2019) Colon polyps (~2014) Hypertension (~1999) Skin cancer (~2004) Cervical spine fracture Hearing loss (~2008) Melanoma Back pain Arthritis Bladder polyp Urinary urgency Urinary frequency Incontinence Interstitial cystitis Impaired vision 1st degree AV block Surgical History History of bilateral salpingo-oophorectomy (~05/22/19) S/P laparoscopic supracervical hysterectomy (~05/22/19) Anesthesia History of hysteroscopy (~04/2014) History of total knee replacement (~12/2017) S/P excision of lipoma Perforated eardrum (~02/2017) H/O total knee replacement S/P bunionectomy Arm fracture, left S/P left knee arthroscopy Status post dilation and curettage (05/15/14) Status post dilation and curettage History of third molar tooth extraction Family History Father Cancer Mother Stroke Brother Parkinson's disease Social History household members: spouse Smoking Status: Never smoker alcohol intake: current Smoking Status: Never smoker alcohol intake frequency: 0-2 drinks per day Alcohol type: hard liquor Substance Use Type: does not use Exam <Luanne Wahl DO - Last Filed: 03/06/24 08:01> Initial Vital Signs Initial Vital Signs: Vital Signs Temperature 97.9 F 03/05/24 16:37 Pulse Rate 83 03/05/24 16:37 Respiratory Rate 12 03/05/24 16:37 Blood Pressure 163/71 H 03/05/24 16:37 Pulse Oximetry 94 03/05/24 16:37 Oxygen Delivery Method Room Air 03/05/24 16:37 GENERAL: Alert pleasant 78-year-old female and in [no acute] distress. HEENT: Head atraumatic,EOMI, pupils reactive, face symmetric, [moist] mucous membranes CARDIOVASCULAR: Regular rate and rhythm without murmurs, rubs or gallops. RESPIRATORY: Breath sounds equal bilaterally, no wheezes rales or rhonchi. ABDOMEN: Soft, right lower quadrant tenderness positive rebound no distention, mild guarding EXTREMITIES: Normal range of motion, no clubbing or edema. Neurovascularly intact NEUROLOGICAL: Alert and oriented x4.Normal gait and speech. SKIN: Warm, dry, no laceration, no petechiae, no rashes or lesions. <Yara Abel DO - Last Filed: 03/06/24 02:24> Initial Vital Signs Initial Vital Signs: Vital Signs Temperature 97.9 F 03/05/24 16:37 Pulse Rate 83 03/05/24 16:37 Respiratory Rate 12 03/05/24 16:37 Blood Pressure 163/71 H 03/05/24 16:37 Pulse Oximetry 94 03/05/24 16:37 Oxygen Delivery Method Room Air 03/05/24 16:37 Course <Luanne Maryuri, DO - Last Filed: 03/06/24 08:01> Orders Ordered: Acetaminophen (Acetaminophen 325 Mg Tablet) 650 mg PO Q6H PRN PRN Reason: Fever/Mild Pain (1-3) Last Admin: 03/06/24 06:09 Dose: 650 mg Documented By: SR Hydrocodone Bitart/Acetaminophen (Hydrocodone/Acet 5/325 Tablet) 1 tab PO Q4H PRN PRN Reason: Pain, Moderate (4-6) Hydrocodone Bitart/Acetaminophen (Hydrocodone/Acet 5/325 Tablet) 2 tab PO Q4H PRN PRN Reason: Pain, Severe (7-10) Amitriptyline HCl (Amitriptyline 25 Mg Tablet) 50 mg PO BEDTIME [facility] Last Admin: 03/05/24 21:02 Dose: 50 mg Documented By: BERNADETTE Amlodipine Besylate (Amlodipine 5 Mg Tablet) 5 mg PO DAILY MIGUEL ANGEL Atorvastatin Calcium (Atorvastatin 20 Mg Tablet) 10 mg PO DAILY MIGUEL ANGEL Hydromorphone HCl (Hydromorphone 0.5 Mg Inj) 0.5 mg IV Q2H PRN PRN Reason: Pain, Severe (7-10) Sodium Chloride (Normal Saline 0.9%) 1,000 mls @ 125 mls/hr IV CONT [facility] Last Admin: 03/05/24 18:45 Dose: 125 mls/hr Documented By: EH Lactated Ringer's (Lactated Ringers) 1,000 mls @ 100 mls/hr IV CONT MIGUEL ANGEL Last Admin: 03/06/24 06:07 Dose: 100 mls/hr Documented By: Infusion: 03/06/24 06:07 Dose: Infused Documented By: Admin: 03/05/24 20:14 Dose: 100 mls/hr Documented By: SR Ibuprofen (Ibuprofen 600 Mg Tablet) 600 mg PO Q6H PRN PRN Reason: Fever/Mild Pain (1-3) Morphine Sulfate (Morphine 2 Mg/Ml Inj) 2 mg IV Q2HR PRN PRN Reason: Pain, Moderate (4-6) Last Admin: 03/05/24 18:44 Dose: 2 mg Documented By: EH Naloxone HCl (Naloxone 0.4 Mg/Ml Vial) 0.2 mg IV Q2MIN PRN PRN Reason: Opiate Reversal Ondansetron HCl (Ondansetron 4 Mg/2 Ml Inj) 4 mg IV NOW PRN PRN Reason: Nausea And Vomiting Ondansetron HCl (Ondansetron 4 Mg Odt) 4 mg PO NOW PRN PRN Reason: Nausea And Vomiting Ondansetron HCl (Ondansetron 4 Mg/2 Ml Inj) 4 mg IV Q8HR PRN PRN Reason: Nausea And Vomiting Tamsulosin HCl (Tamsulosin 0.4 Mg Capsule) 0.4 mg PO BEDTIME [facility] Last Admin: 03/05/24 21:02 Dose: 0.4 mg Documented By: BERNADETTE Discontinued Medications Piperacillin Sod/Tazobactam (Sod 4.5 gm/ Sodium Chloride) 100 mls @ 200 mls/hr IV NOW ONE Stop: 03/05/24 18:29 Last Infusion: 03/05/24 19:18 Dose: Infused Documented By: Admin: 03/05/24 18:45 Dose: 200 mls/hr Documented By: EH Vital Signs Vital signs: Vital Signs - 8 hr 03/05/24 18:30 Pulse Rate 77 Pulse Oximetry 93 <Yara Abel DO - Last Filed: 03/06/24 02:24> Orders Ordered: Acetaminophen (Acetaminophen 325 Mg Tablet) 650 mg PO Q6H PRN PRN Reason: Fever/Mild Pain (1-3) Last Admin: 03/06/24 06:09 Dose: 650 mg Documented By: SR Hydrocodone Bitart/Acetaminophen (Hydrocodone/Acet 5/325 Tablet) 1 tab PO Q4H PRN PRN Reason: Pain, Moderate (4-6) Hydrocodone Bitart/Acetaminophen (Hydrocodone/Acet 5/325 Tablet) 2 tab PO Q4H PRN PRN Reason: Pain, Severe (7-10) Amitriptyline HCl (Amitriptyline 25 Mg Tablet) 50 mg PO BEDTIME [facility] Last Admin: 03/05/24 21:02 Dose: 50 mg Documented By: BERNADETTE Amlodipine Besylate (Amlodipine 5 Mg Tablet) 5 mg PO DAILY [facility] Atorvastatin Calcium (Atorvastatin 20 Mg Tablet) 10 mg PO DAILY [facility] Hydromorphone HCl (Hydromorphone 0.5 Mg Inj) 0.5 mg IV Q2H PRN PRN Reason: Pain, Severe (7-10) Sodium Chloride (Normal Saline 0.9%) 1,000 mls @ 125 mls/hr IV CONT [facility] Last Admin: 03/05/24 18:45 Dose: 125 mls/hr Documented By: EH Lactated Ringer's (Lactated Ringers) 1,000 mls @ 100 mls/hr IV CONT [facility] Last Admin: 03/06/24 06:07 Dose: 100 mls/hr Documented By: Infusion: 03/06/24 06:07 Dose: Infused Documented By: Admin: 03/05/24 20:14 Dose: 100 mls/hr Documented By: Ibuprofen (Ibuprofen 600 Mg Tablet) 600 mg PO Q6H PRN PRN Reason: Fever/Mild Pain (1-3) Morphine Sulfate (Morphine 2 Mg/Ml Inj) 2 mg IV Q2HR PRN PRN Reason: Pain, Moderate (4-6) Last Admin: 03/05/24 18:44 Dose: 2 mg Documented By: EH Naloxone HCl (Naloxone 0.4 Mg/Ml Vial) 0.2 mg IV Q2MIN PRN PRN Reason: Opiate Reversal Ondansetron HCl (Ondansetron 4 Mg/2 Ml Inj) 4 mg IV NOW PRN PRN Reason: Nausea And Vomiting Ondansetron HCl (Ondansetron 4 Mg Odt) 4 mg PO NOW PRN PRN Reason: Nausea And Vomiting Ondansetron HCl (Ondansetron 4 Mg/2 Ml Inj) 4 mg IV Q8HR PRN PRN Reason: Nausea And Vomiting Tamsulosin HCl (Tamsulosin 0.4 Mg Capsule) 0.4 mg PO BEDTIME [facility] Last Admin: 03/05/24 21:02 Dose: 0.4 mg Documented By: AKP Discontinued Medications Piperacillin Sod/Tazobactam (Sod 4.5 gm/ Sodium Chloride) 100 mls @ 200 mls/hr IV NOW ONE Stop: 03/05/24 18:29 Last Infusion: 03/05/24 19:18 Dose: Infused Documented By: Admin: 03/05/24 18:45 Dose: 200 mls/hr Documented By: EH Vital Signs Vital signs: Vital Signs - 8 hr 03/05/24 18:30 Pulse Rate 77 Pulse Oximetry 93 MDM - Abdominal Pain <Luanne Wahl DO - Last Filed: 03/06/24 08:01> Lab Data 03/06/24 05:50 03/06/24 05:50 Labs: Lab Results 03/05/24 03/05/24 Range/Units 16:40 17:16 WBC 12.6 H (4.5-11.0) X10^3/uL RBC 4.54 (4.0-5.2) X10^6/uL Hgb 14.2 (12.0-16.0) g/dL Hct 41.8 (36-46) % MCV 92.1 (80-100) fL MCH 31.2 (26-34) PG MCHC 33.9 (30-36) % RDW 14.1 (11.6-14.8) % Plt Count 297 (150-400) X10^3/uL Neut % (Auto) 72.3 (50-75) % Lymph % (Auto) 17.7 L (25-40) % [place] % (Auto) 7.9 (3-14) % Eos % (Auto) 1.5 L (2-4) % Baso % (Auto) 0.6 (0-2) % Neut # (Auto) 9100 H (4795-3657) /uL Lymph # (Auto) 2200 (3330-8289) /uL [place] # (Auto) 1000 H (0-900) /uL Eos # (Auto) 200 (0-450) /uL Baso # (Auto) 100 (0-100) /uL Sodium 140 (137-145) mmol/L Potassium 3.9 (3.4-5.1) mmol/L Chloride 106 (98-107) mmol/L Carbon Dioxide 25 (22-32) mmol/L BUN 26 H (7-17) mg/dL Creatinine 0.84 (0.52-1.04) mg/dL Estimated GFR > 60 (>60) mL/min BUN/Creatinine Ratio 31.0 H (6-22) Glucose 131 H (80-110) mg/dL Calcium 9.3 (8.4-10.2) mg/dL Total Bilirubin 0.5 (0.2-1.3) mg/dL AST 23 (14-36) IU/L ALT 20 (<35) IU/L Alkaline Phosphatase 83 (38-126) U/L Total Protein 7.8 (6.3-8.2) g/dL Albumin 4.6 (3.5-5.0) g/dL Globulin 3.2 (1.7-4.1) g/dL Albumin/Globulin Ratio 1.4 (1.0-2.8) Lipase 53 (23-300) U/L Urine RBC 5-10/hpf H (0-5/HPF) Urine WBC 10-30/hpf H (0-5/HPF) Ur Squamous Epith Cells 5-10 /hpf H (0-5/HPF) Ur Renal Epithelial Cell 1-5/hpf H (0-1/HPF) Urine Bacteria Few (2-10) H (None) Ur Culture Indicated? Specimen cultured Vol Urine Centrifuged 10ml (spun) Point of care testing: Urine Dip Bedside Urine Glucose Negative Bedside Urine Bilirubin - Negative Bedside Urine Ketone - Negative Urine Specific [place] 1.025 Bedside Urine Occult Blood ++ Bedside Urine pH 5.5 Bedside Urine Protein - Negative Bedside Urine Urobilinogen - Negative Bedside Urine Nitrite - Negative Bedside Urine Leukocytes - Negative Esterase MDM Narrative Medical decision making narrative: Patient is a relatively healthy 78-year-old female who presents with right lower quadrant pain. She is quite tender to palpation with mild rebound and guarding. Blood work has been reviewed she does have mild leukocytosis of 12.6, electrolytes are stable no SHAKIRA bilirubin 0.5 AST 23 ALT 20 alk-phos [id number] imaging pending Patient is offered pain medication but declined at this time Patient signed out to Dr. Abel <Yara Abel, DO - Last Filed: 03/06/24 02:24> Lab Data Labs: Lab Results 03/05/24 03/05/24 Range/Units 16:40 17:16 WBC 12.6 H (4.5-11.0) X10^3/uL RBC 4.54 (4.0-5.2) X10^6/uL Hgb 14.2 (12.0-16.0) g/dL Hct 41.8 (36-46) % MCV 92.1 (80-100) fL MCH 31.2 (26-34) PG MCHC 33.9 (30-36) % RDW 14.1 (11.6-14.8) % Plt Count 297 (150-400) X10^3/uL Neut % (Auto) 72.3 (50-75) % Lymph % (Auto) 17.7 L (25-40) % [place]ulk % (Auto) 7.9 (3-14) % Eos % (Auto) 1.5 L (2-4) % Baso % (Auto) 0.6 (0-2) % Neut # (Auto) 9100 H (5464-5315) /uL Lymph # (Auto) 2200 (8691-9740) /uL [place] # (Auto) 1000 H (0-900) /uL Eos # (Auto) 200 (0-450) /uL Baso # (Auto) 100 (0-100) /uL Sodium 140 (137-145) mmol/L Potassium 3.9 (3.4-5.1) mmol/L Chloride 106 (98-107) mmol/L Carbon Dioxide 25 (22-32) mmol/L BUN 26 H (7-17) mg/dL Creatinine 0.84 (0.52-1.04) mg/dL Estimated GFR > 60 (>60) mL/min BUN/Creatinine Ratio 31.0 H (6-22) Glucose 131 H (80-110) mg/dL Calcium 9.3 (8.4-10.2) mg/dL Total Bilirubin 0.5 (0.2-1.3) mg/dL AST 23 (14-36) IU/L ALT 20 (<35) IU/L Alkaline Phosphatase 83 (38-126) U/L Total Protein 7.8 (6.3-8.2) g/dL Albumin 4.6 (3.5-5.0) g/dL Globulin 3.2 (1.7-4.1) g/dL Albumin/Globulin Ratio 1.4 (1.0-2.8) Lipase 53 (23-300) U/L Urine RBC 5-10/hpf H (0-5/HPF) Urine WBC 10-30/hpf H (0-5/HPF) Ur Squamous Epith Cells 5-10 /hpf H (0-5/HPF) Ur Renal Epithelial Cell 1-5/hpf H (0-1/HPF) Urine Bacteria Few (2-10) H (None) Ur Culture Indicated? Specimen cultured Vol Urine Centrifuged 10ml (spun) Point of care testing: Urine Dip Bedside Urine Glucose Negative Bedside Urine Bilirubin - Negative Bedside Urine Ketone - Negative Urine Specific [place] 1.025 Bedside Urine Occult Blood ++ Bedside Urine pH 5.5 Bedside Urine Protein - Negative Bedside Urine Urobilinogen - Negative Bedside Urine Nitrite - Negative Bedside Urine Leukocytes - Negative Esterase Imaging Data CT scan - abdomen/pelvis: Radiologist's Impression: Jocy Gavin??78??F??1945 ? Allergy/Adv: No Known Allergies Close Abdomen/Pelvis CT (Signed) Sim Mederos - 03/05/24 Mammogram Screening (Signed) Seamus Rios - 04/25/23 Hip X-Ray (Signed) Sim Mederos - 06/19/22 Mammogram Screening (Signed) Qasim Trinh - 04/17/22 Chest X-Ray (Signed) Saad Wilson - 10/22/21 Mammogram, Additional Views (Signed) Jesse Lainez - 04/21/21 Lumbar Spine X-Ray (Signed) Ari Garcia - 03/29/21 Cervical Spine X-Ray (Signed) Earlene Williamson - 03/29/21 Mammogram Screening (Signed) Seamus Rios - 03/25/21 Mammogram Screening (Signed) Mariel Baires - 03/22/20 Barium Enema w/Air Contrast (Signed) Albin Duggan - 11/14/19 Telemetry Strips 11/03/19 Mammogram Screening (Signed) Alban Alanis - 03/19/19 Abdomen/Pelvis CT (Signed) Saad Wilson - 01/31/19 Shoulder X-Ray (Signed) Radu Alcaraz - 06/13/18 Mammogram Screening (Signed) Leandro De La Cruz - 03/04/18 Knee X-Ray (Signed) gJ Short - 01/07/18 Launch?[address] [address] [address] Scan Report Signed Patient: Jocy Gavin MR#: [id number] : 1945 Acct:[id number] Age/Sex: 78 / F Date of Service: 03/05/24 Loc: ED Accession Number: [id number] Procedure: CT abdomen pelvis w con Ordering Provider: Luanne Wahl D.O. PROCEDURE: CT ABDOMEN PELVIS W CON INDICATIONS: RLQ pain TECHNIQUE: After the administration of intravenous contrast, axial sections acquired from the lung bases to the pubic symphysis. Coronal and sagittal reformats were performed. For radiation dose reduction, the following was used: automated exposure control, adjustment of mA and/or kV according to patient size. COMPARISON: Prior images unavailable for review FINDINGS: Image quality: Diagnostic Lower chest: Basal scarring/atelectasis. Annular and possible valvular cardiac calcifications. Liver: Mild focal fat. No suspicious solid lesion Gallbladder and biliary system: Unremarkable, nondilated Pancreas: No ductal dilation Spleen: Nonenlarged Adrenals: No discrete nodule Kidneys: Nonobstructing 5 mm left lower pole calculus is present. Left renal cysts. No solid renal mass. No hydronephrosis. Vessels and lymph nodes: The main portal vein is patent. No abdominal aortic aneurysm. No pathologic lymph nodes by size criteria. Bowel and peritoneum: Small gastric diverticulum. No small bowel obstruction. There are colonic diverticula. Acute appendicitis. No abscess. Body wall: Rectus diastasis. Small periumbilical hernia. Pelvis: Bladder is under distended. Possible hysterectomy or partial hysterectomy Bones: Possible lipoma posterior to the right femur, with small calcification. There are degenerative changes. IMPRESSION: Acute appendicitis. No abscess. No small bowel obstruction. Other findings as above. Dictated by: Sim Mederos M.D. on 03/05/2024 at 18:08 Approved by: Sim Mederos M.D. on 03/05/2024 at 18:16 [facility] Narrative Medical decision making narrative: Patient is a relatively healthy 78-year-old female who presents with right lower quadrant pain. She is quite tender to palpation with mild rebound and guarding. Blood work has been reviewed she does have mild leukocytosis of 12.6, electrolytes are stable no SHAKIRA bilirubin 0.5 AST 23 ALT 20 alk-phos [id number] imaging pending Patient is offered pain medication but declined at this time Patient signed out to Dr. Abel 03/05/2024 Dr. Abel: Patient signed out to myself seen and evaluated by myself imaging was reviewed patient has mild leukocytosis. CT imaging shows acute appendicitis. Patient is overall doing well starting to have a little bit more pain has not had anything so far, we will order some pain medication. Patient is NPO, started maintenance fluids, IV antibiotics and spoke with surgery, Dr. Townsend who accepts for admission. Likely OR tomorrow. Patient was seen by Dr. Townsend here in the department. Discharge Plan Departure Patient Disposition: Admitted As Inpatient Clinical Impression: Acute appendicitis Qualifiers: Acute appendicitis type: with localized peritonitis Appendicitis gangrene presence: without gangrene Appendicitis perforation presence: without perforation Appendicitis abscess presence: without abscess Qualified Code(s): K 35.30 - Acute appendicitis with localized peritonitis, without perforation or gangrene Admit Date/Time: 03/05/24 18:43 Admit Provider: Burke Townsend
[2024-03-05 17:13] LABS: Alanine Aminotransferase 20 IU/L (<35); Albumin 4.6 g/dL (3.5-5.0); Albumin Globulin Ratio 1.4 (1.0-2.8); Alkaline Phosphatase 83 U/L (38-126); Aspartate Aminotransferase 23 IU/L (14-36); Bilirubin Total 0.5 mg/dL (0.2-1.3); Blood Urea Nitrogen 26 mg/dL (7-17); Calcium 9.3 mg/dL (8.4-10.2); Carbon Dioxide 25 mmol/L (22-32); Chloride 106 mmol/L (98-107); Estimated Glomerular Filt Rate > 60 mL/min (>60); Globulin 3.2 g/dL (1.7-4.1); Glucose 131 mg/dL (80-110); HEMOLYSIS < 15 (0-50); Lipase 53 U/L (23-300); Potassium 3.9 mmol/L (3.4-5.1); Sodium 140 mmol/L (137-145); Total Protein 7.8 g/dL (6.3-8.2)
[2024-03-05 18:15] LABS: Urine Volume 10mL (spun)
[2024-03-05 18:16] LABS: Bacteria Urine Few (2-10); Culture Indicated Urine Specimen Cultured; RBC Urine 5-10/HPF (0-5/HPF); Renal Epithelial Cells Urine 1-5/HPF (0-1/HPF); Squamous Epithelial Cell Urine 5-10 /HPF (0-5/HPF); WBC Urine 10-30/HPF (0-5/HPF)
[2024-03-05] MEDS: MORPHINE 2 MG/ML INJ IV (18:44)
[2024-03-05] MEDS: SODIUM CHLORIDE 0.9% 1,000 ML 125 ML IV (18:45)
[2024-03-05] MEDS: PIPERACILLIN/TAZO 4.5 GM in SODIUM CHLORIDE 0.9% 100 ML IV (18:45)
--- NOTE | 2024-03-05 18:58 | PM.HP.1 ---
History of Present Illness History of Present Illness Date Patient Seen: 03/05/24 Time Patient Seen: 18:58 Chief complaint: abd pain Narrative: Jocy is a 78-year-old woman who presents to the emergency department with a day of abdominal pain. A CT scan demonstrates acute uncomplicated appendicitis. Her only prior abdominal surgery was a hysterectomy. Her last meal was a proximally noon today. [facility] Medical History (Updated 03/05/24 @ 18:59 by Burke Townsend MD) Melanoma (~2004) Sleep apnea (~2017) Fractures (~1981) Measles Chicken pox Tinnitus (~1999) Cataracts, bilateral (~2008) Painful menstrual periods Heavy menstrual period Fibroids Hematuria (~2018) Colon polyps (~2013) Hypertension (~1999) Skin cancer (~2004) Cervical spine fracture Hearing loss (~2008) Melanoma Back pain Arthritis Bladder polyp Urinary urgency Urinary frequency Incontinence Interstitial cystitis Impaired vision 1st degree AV block Surgical History History of bilateral salpingo-oophorectomy (~05/22/19) S/P laparoscopic supracervical hysterectomy (~05/22/19) Anesthesia History of hysteroscopy (~04/2014) History of total knee replacement (~12/2017) S/P excision of lipoma Perforated eardrum (~02/2017) H/O total knee replacement S/P bunionectomy Arm fracture, left S/P left knee arthroscopy Status post dilation and curettage (05/15/14) Status post dilation and curettage History of third molar tooth extraction Family History Father Cancer Mother Stroke Brother Parkinson's disease Social History household members: spouse Smoking Status: Never smoker alcohol intake: current Meds Home Medications and Allergies Home Medications Medication Instructions Recorded Confirmed Type amitriptyline 50 mg tablet 50 mg PO HS ##0 07/04/17 08/04/20 History amlodipine 5 mg tablet (Norvasc) 5 mg PO QDAY ##0 07/04/17 08/04/20 History lovastatin 20 mg tablet 20 mg PO QDAY ##0 07/04/17 08/04/20 History pentosan polysulfate sodium 100 mg 100 mg PO BID ##0 07/04/17 08/04/20 History capsule (Elmiron) tamsulosin 0.4 mg capsule (Flomax) 0.4 mg PO BEDTIME ##0 07/04/17 08/04/20 History aspirin 81 mg tablet,delayed 81 mg PO BEDTIME 01/02/18 08/04/20 History release Calcium 500 500 mg PO BID 01/07/18 08/04/20 History biotin 5,000 mcg PO QDAY 01/07/18 08/04/20 History cholecalciferol (vitamin D3) 2,000 units PO QDAY 01/07/18 08/04/20 History diphth,pertus(acell),tetanus 2.5 0.5 ml IM ONCE Need for 08/04/20 08/04/20 Rx Lf unit-8 mcg-5 Lf/0.5 mL IM susp Vaccination #0.5 mL (Boostrix Tdap) cephalexin 500 mg capsule 500 mg PO BID #10 caps 10/22/21 Rx fluconazole 150 mg tablet 150 mg PO Q3D 2 doses #2 tabs 10/22/21 Rx (Diflucan) Allergies Allergy/AdvReac Type Severity Reaction Status Date / Time No Known Allergies Allergy Verified 03/05/24 16:41 Exam Vital Signs (past 8 hours): - 03/05/24 16:37 Temperature 97.9 F Pulse Rate 83 Respiratory Rate 12 Blood Pressure 163/71 H Pulse Oximetry 94 Oxygen Delivery Method Room Air Oxygen Delivery Method Room Air Narrative Exam Narrative: Obese Tender to palpation in the right lower quadrant just lateral to McBurney's point Objective Labs 03/05/24 16:40 03/05/24 16:40 Labs: Laboratory Results - last 24 hr 03/05/24 03/05/24 16:40 17:16 WBC 12.6 H RBC 4.54 Hgb 14.2 Hct 41.8 MCV 92.1 MCH 31.2 MCHC 33.9 RDW 14.1 Plt Count 297 Neut % (Auto) 72.3 Lymph % (Auto) 17.[address] [place] % (Auto) 7.9 Eos % (Auto) 1.5 L Baso % (Auto) 0.6 Neut # (Auto) 9100 H Lymph # (Auto) [address] [place] # (Auto) 1000 H Eos # (Auto) 200 Baso # (Auto) 100 Sodium 140 Potassium 3.9 Chloride 106 Carbon Dioxide 25 BUN 26 H Creatinine 0.84 Estimated GFR > 60 BUN/Creatinine Ratio 31.0 H Glucose 131 H Calcium 9.3 Total Bilirubin 0.5 AST 23 ALT 20 Alkaline Phosphatase 83 Total Protein 7.8 Albumin 4.6 Globulin 3.2 Albumin/Globulin Ratio 1.4 Lipase 53 Urine RBC 5-10/hpf H Urine WBC 10-30/hpf H Ur Squamous Epith Cells 5-10 /hpf H Ur Renal Epithelial Cell 1-5/hpf H Urine Bacteria Few (2-10) H Ur Culture Indicated? Specimen cultured Vol Urine Centrifuged 10ml (spun) Assessment & Plan Assessment and plan (1) Acute appendicitis: Qualifiers: Acute appendicitis type: with localized peritonitis Appendicitis gangrene presence: without gangrene Appendicitis perforation presence: without perforation Appendicitis abscess presence: without abscess Qualified Code(s): K35.30 - Acute appendicitis with localized peritonitis, without perforation or gangrene Status: Acute Plan We discussed antibiotics versus surgery. She prefers laparoscopic appendectomy. We will start Zosyn now and plan for surgery tomorrow afternoon. Time-Based Coding :: [TOTAL MINUTES] spent with patient and on the chart (including review of chart, obtaining history, exam, reviewing outside data, placing orders, documenting exam and treatment plan, and counseling patient) on [DATE].
[2024-03-05] MEDS: LACTATED RINGERS 1,000 ML 100 ML IV (20:14)
[2024-03-05] MEDS: AMITRIPTYLINE 25 MG TABLET 50 MG PO (21:02)
[2024-03-05] MEDS: TAMSULOSIN 0.4 MG CAPSULE PO (21:02)
[2024-03-06] VITALS (8 sets, daily range): BP systolic 121–147; BP diastolic 45–98; PULSE 74–86; RESP 13–21; TEMP 36.1–37.2; O2SAT 93–97; BMI 29.1
--- NOTE | 2024-03-06 | PATH_ITS ---
[facility] Accession Number: [id number] No. of containers..01 Tissue . 01 Material submitted: . appendix - APPENDIX . 01 Diagnosis: APPENDIX, APPENDECTOMY: Acute appendicitis and periappendicitis. MRV 03/11/2024 1228 Local . 01 Electronically signed: . Loly Mccauley MD, Pathologist NPI- [id number] . 01 Gross description: . Received in formalin with two identifiers and appendix, is a rai vermiform appendix 6.4 cm in length by 0.7 cm in average diameter with rai slightly roughened serosa and adherent material consistent with exudate. The margin is inked blue, and sectioning reveals a patent lumen with rai semi-solid material, and averaging 0.2 cm in diamter. The moseley average 0.3 cm thick with no perforation or lesions identified. Head Up Operator sections to include the margin, one-half of the bisected distal tip, and cross-section are submitted in cassette A1. ([id number]) /KEILY 03/07/2024 1127 Local . 01 Pathologist provided ICD-10: K35.30 . 01 CPT . 565740 Specimen Comment: A courtesy copy of this report has been sent to [phone] Performed at: [address] [address], [place], [place] [id number] MD Leandro Conroy MD Phone: [phone]
[2024-03-06] MEDS: LACTATED RINGERS 1,000 ML 100 ML IV ×2 (06:07→15:14)
[2024-03-06] MEDS: ACETAMINOPHEN 325 MG TABLET 650 MG PO (06:09)
[2024-03-06 06:43] LABS: Add Manual Diff / Slide Review NO; Basophils Absolute Auto 100 /uL (0-100); Basophils Percent Auto 0.7 % (0-2); Eosinophils Absolute Auto 200 /uL (0-450); Eosinophils Percent Auto 2.6 % (2-4); Hematocrit 37.8 % (36-46); Hemoglobin 12.9 g/dL (12.0-16.0); Lymphocytes Absolute Auto 1700 /uL (1100-4500); Lymphocytes Percent Auto 18.7 % (25-40); Mean Corpuscular HGB Conc 34.1 % (30-36); Mean Corpuscular Hemoglobin 31.2 PG (26-34); Mean Corpuscular Volume 91.7 fL (80-100); Monocytes Absolute Auto 700 /uL (0-900); Neutrophils Absolute Auto 6400 /uL (1500-7000); Platelet Count 266 X10^3/uL (150-400); Red Blood Cell Count 4.12 X10^6/uL (4.0-5.2); Red Cell Distribution Width 14.1 % (11.6-14.8); White Blood Cell Count 9.1 X10^3/uL (4.5-11.0)
[2024-03-06 06:47] LABS: BUN Creatinine Ratio 25.9 (6-22); Blood Urea Nitrogen 15 mg/dL (7-17); Calcium 8.4 mg/dL (8.4-10.2); Carbon Dioxide 27 mmol/L (22-32); Chloride 108 mmol/L (98-107); Estimated Glomerular Filt Rate > 60 mL/min (>60); Glucose 106 mg/dL (80-110); HEMOLYSIS < 15 (0-50); Potassium 3.6 mmol/L (3.4-5.1); Sodium 138 mmol/L (137-145)
[2024-03-06] MEDS: AMLODIPINE 5 MG TABLET PO (08:59)
[2024-03-06] MEDS: ATORVASTATIN 20 MG TABLET 10 MG PO (08:59)
[2024-03-06] MEDS: PIPERACILLIN/TAZO 3.375 GM in SODIUM CHLORIDE 0.9% 100 ML IV (09:00)
--- NOTE | 2024-03-06 13:31 | CM.DANOTE ---
Initial DCP Assessment Visit Note Reviewed EMR and team rounds for pt's medical status and updates. Met with pt and spouse at bedside to introduce self and role, pt was found to be alert/oriented, and able to discuss her preference for home d/c. Pt resides independently with her spouse in their own home here in [place]. Her spouse will plan to transport her home later this evening after her surgery. Payor: Medicare PCP: Dr. Adams Pt is a 74 year-old F who presented to the ED last evening with c/o right lower abdominal quadrant pain. She denies any nausea/vomiting, and was also able to eat a small amount of food today. CT abd/pelvis showed acute appendicitis. She was made NPO, and started on IV ABO's then placed in OBS for planned appendectomy, which will be done later this afternoon. She and spouse deny any need for assistance or OP resources from this ASSOCIATE PROFESSOR OF MEDICINE at this time. Will continue to monitor should there be any further evolving needs that CM can assist with. Discharge Planning/Care Management CM Discharge Assessment Start: 03/06/24 13:29 Freq: Status: Active Protocol: Document 03/06/24 13:29 DPL (Rec: 03/06/24 13:30 DPL [id number]) Discharge Planning Assessment Assigned Quality Improvement Specialist EDWIN Yin Advance Directives? Yes Advance Directives on File Yes History Provided By Patient,Significant Other, Medical Record Has Patient been admitted in last 30 No days? Prior Living Arrangements House Household Members spouse Type of transporation used prior to Drives own vehicle admit Caregiver for Another No Comment N/A Patient/Family Preference OP PT Therapy Comment No identified d/c needs at this time. Barriers to Discharge No Discharge Plan Home Transportation Arrangement Spouse Referrals Initiated None needed Whiteboard Updated in Patient Room with Yes name and ext. # of Quality Improvement Specialist Review Status In Process Please Provide Date Initial DC 03/06/24 Assessment Was Performed
--- NOTE | 2024-03-06 14:27 | SUR.OPER ---
Supine on padded OR bed, head on pillow, right arm secured on padded arm board at <90 degrees abduction, left arm padded and tucked at patients side. legs uncrossed, safety belt at thigh, tape over blanket over lower legs.
[2024-03-06] MEDS: BUPIVACAINE 0.5% W/ EPI (PF) 30 ML VIAL INJ (15:47)
--- NOTE | 2024-03-06 16:07 | PM.OP.1 ---
Operative Date/Time/Diagnoses Date of procedure: 03/06/24 Time of procedure: 16:07 Pre-op diagnosis: Acute appendicitis Post-op diagnosis: same Procedure & Clinicians Procedure: Laparoscopic appendectomy Same procedure as scheduled: Yes Surgeon: Burke Townsend Anesthesia Type: General Operative Notes Procedure in detail: The patient was on IV antibiotics. The patient was brought to the operating room, placed on the table in the supine position and general endotracheal anesthesia was induced. A time-out was performed. The abdomen was prepped and draped in the usual fashion. After injection of 0.25% Marcaine a 1 cm infraumbilical incision was created with a 15 blade scalpel. The umbilical stalk was grasped with a Frances clamp to elevate the abdominal wall. The infraumbilical midline fascia was cleared over 1 cm and the fascia was scored with cautery. The peritoneum was pierced with a Peon clamp. The Jeanna port was placed and the abdomen was insufflated to 15 mmHg. The camera was inserted and there was no evidence of any injury from the entry. Next, 5 mm ports were placed in the suprapubic and left lower quadrant positions under direct vision. The patient was placed in Trendelenburg with the right-side elevated. The terminal ileum was swept away from the cecum and the appendix was visualized. The appendix was inflamed and distended but not perforated and there was no evidence of gangrene. The mesoappendix was divided with the Power-seal to the base. Two PDS Endoloops were placed at the base and a 3rd endoloop was placed about a centimeter distally and the appendix was divided sharply. The specimen was placed in a Endo-Catch bag. The table was flattened and the terminal ileum and omentum were allowed to slide in over the appendiceal stump. Finally, the 5 mm ports were removed under direct vision. The pneumoperitoneum was released and the Jeanna port was removed followed by the Endo-Catch bag. Additional local was injected into the fascia and the infraumbilical incision was closed with 2 interrupted 2-0 Vicryl sutures. The skin incisions were closed with 4 Monocryl. Steri-Strips were applied followed by Band-Aids. EBL: 5 mL Specimen: Appendix Post-operative Condition: stable Disposition: PACU
[2024-03-06] MEDS: ONDANSETRON 4 MG/2 ML INJ IV (16:31)
== END 2024-03-06 17:00 | disposition home or self-care (01) ==
LOC: ED 18:43 → AC 19:14
PROVIDERS: Emergency Medicine; Admitting Provider Surgery; Emergency Provider Emergency Medicine; PCP Family Medicine; Referring Provider Emergency Medicine; Visit Provider Surgery
PROC: 0DTJ4ZZ Resection of Appendix, Percutaneous Endoscopic Approach (ICD-10-PCS; CPT 44970; principal; 2024-03-06 14:45)
DX: K35.80 Unspecified acute appendicitis (principal)
CPT/HCPCS: 44970; 36415; 74177; 80048; 80053; 81003; 81015; 83690; 85025; 87086; 96361; 96365; 96366; 96375; 99284; G0378; J1100; J1885; J2270; J2405; J2543; J2704; J3010; Q9967

== ENCOUNTER → 2024-05-08 10:08 | Outpatient (CLI) | payer MEDICARE, OTHER, SELFPAY ==
[2024-03-05 20:16] VITALS: BMI 29.1
--- NOTE | 2024-05-08 10:08 | DI.MG.S_ITS ---
BILATERAL DIGITAL SCREENING MAMMOGRAM 3D/2D WITH CAD: 05/08/2024 CLINICAL: Routine screening. Comparison is made to exams dated: 04/25/2023 mammogram, 04/17/2022 mammogram, and 03/25/2021 mammogram - [facility]. There are scattered areas of fibroglandular density (category b / 25%-50% glandular tissue). Current study was also evaluated with a Computer Aided Detection (CAD) system. No significant masses, calcifications, or other findings are seen in either breast. There has been no significant interval change. IMPRESSION: NEGATIVE There is no mammographic evidence of malignancy. A 1 year screening mammogram is recommended. Based on the Tyrer Cuzick model (a risk assessment model) the patient's lifetime risk is 2.2% and her 10 year risk is 0.0%. According to the ACR, ACS, and NCCN guidelines, an annual breast MRI exam along with mammogram is recommended if the patient's lifetime risk is 20% or greater. This exam was interpreted at Station ID: [id number]. NOTE: For mammograms, a report in lay terms will be sent to the patient. Approximately 15% of breast malignancies will not be visualized mammographically. In the management of a palpable breast mass, a negative mammogram must not discourage biopsy of a clinically suspicious lesion. Electronically Signed By: Jesse barber/elvi:05/08/2024 17:48:42 letter sent: Normal Exam ACR BI-RADS Category 1: Negative [id number]
== END ==
LOC: MAMMO 10:08
PROVIDERS: PCP Family Medicine; Referring Provider Family Medicine; Visit Provider Family Medicine
DX: Z12.31 Encounter for screening mammogram for malignant neoplasm of breast (principal)
CPT/HCPCS: 77063; 77067

== ENCOUNTER → 2024-12-10 10:14 | Outpatient (CLI) | payer MEDICARE, OTHER, SELFPAY ==
[2024-03-05 20:16] VITALS: BMI 29.1
--- NOTE | 2024-12-10 10:17 | DI.CT.S_ITS ---
PROCEDURE: CT ABDOMEN PELVIS W CON INDICATIONS: CONSTIPATION TECHNIQUE: After the administration of intravenous contrast, axial sections acquired from the lung bases to the pubic symphysis. Coronal and sagittal reformats were performed. For radiation dose reduction, the following was used: automated exposure control, adjustment of mA and/or kV according to patient size. COMPARISON: [facility], CT, CT ABDOMEN PELVIS W CON, 03/05/2024, 17:27. FINDINGS: Image quality: Diagnostic. Lower Chest: Calcification of the coronary vasculature. ABDOMEN: Liver: No solid mass. Gallbladder: No radiopaque gallstones or wall thickening. Biliary ducts: No biliary dilation. Pancreas: No ductal dilation. Spleen: Size is within normal limits. Adrenal Glands: No adrenal nodules. Kidneys and Ureters: No hydronephrosis. No solid mass. No complex renal cystic lesion which requires follow up. 8 mm nonobstructing left inferior pole renal calculus. Stomach and Bowel: Small hiatal hernia. Normal colonic caliber, without significant wall thickening. Diverticulosis of the descending and sigmoid colon without evidence of acute diverticulitis. Thickening of the proximal sigmoid colon. Moderate colonic stool. Appendix is not seen. Peritoneum: No abnormal intraperitoneal fluid. No free air. Ventral Wall: No significant ventral hernia. Abdominal Nodes: No retroperitoneal or mesenteric adenopathy by size criteria. Vessels: Aorta and inferior vena cava are normal in size. PELVIS: Pelvic Organs: Unremarkable. Bladder: No bladder wall thickening, accounting for underdistention. Pelvic Nodes: No enlarged lymph nodes. Miscellaneous: No inguinal hernias are seen. There is a 50 mm diameter predominantly fat containing mass within the right posterior quadratus femoris, with peripheral calcification. There is a small amount of internal ill-defined soft tissue signal intensity within this mass. Bones: No aggressive osseous abnormality. IMPRESSION: 1. No acute process. 2. Moderate colonic stool. 3. Thickening of the sigmoid colon. Further assessment with colonoscopy is recommended. 4. 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 This could be contributing to ischial femoral impingement. 5. Nonobstructing left renal calculus. 6. Small hiatal hernia. 7. Coronary artery disease. Dictated by: Jaci Tai M.D. on 12/10/2024 at 14:54 Approved by: Jaci Tai M.D. on 12/10/2024 at 14:59
[2024-12-10 10:45] LABS: Estimated Glomerular Filt Rate > 60 mL/min (>60)
== END ==
PROVIDERS: PCP Family Medicine; Referring Provider Family Medicine; Visit Provider Family Medicine
DX: R19.09 Other intra-abdominal and pelvic swelling, mass and lump (principal); K35.80 Unspecified acute appendicitis; K59.09 Other constipation; N20.0 Calculus of kidney; K44.9 Diaphragmatic hernia without obstruction or gangrene; K57.90 Diverticulosis of intestine, part unspecified, without perforation or abscess without bleeding; I25.10 Atherosclerotic heart disease of native coronary artery without angina pectoris
CPT/HCPCS: 36415; 74177; 82565; Q9967

== ENCOUNTER → 2025-01-20 08:44 | Outpatient (CLI) | payer MEDICARE, OTHER, SELFPAY ==
[2024-03-05 20:16] VITALS: BMI 29.1
--- NOTE | 2025-01-20 08:45 | DI.ECHO.S_ITS ---
[place] +---------+ Hospital : : [address] : : [place] : : [address] : : Phone: [phone] Echocardiogram Report + + :Name: CHARU ABEBE Study Date: 01/20/2025 Height: 65 in : :Hospital ReadingLocation: Weight: 175 lb : : Gender: Female BSA: 1.9 m2 : :: 1945 Age: 79 yrs BP: 135/82 mmHg: :Reason For Study: ATHEROSCLEROSIS OF AORTA : :Ordering Physician: TERA, : :PASCALE Chandler Performed By: Darlyn Lindsey : :Referring: PASCALE HALEY : + + Interpretation Summary The ejection fraction is estimated to be 55-60%. There is mild mitral regurgitation. There is mild to moderate aortic regurgitation. There is trace tricuspid regurgitation. The right ventricular systolic pressure is estimated to be at least 24 mmHg based on an estimated right atrial pressure of 3 mm Hg. Procedure: A two-dimensional transthoracic echocardiogram with color flow and Doppler was performed. The study quality was technically adequate. There is no prior echocardiogram noted for this patient. The patient was in sinus rhythm with heart rates between 69-71 bpm during the exam. Left Ventricle: The left ventricle is normal in size. Proximal septal thickening is noted. The ejection fraction is estimated to be 55-60%. There are no obvious focal wall motion abnormalities noted but poor endocardial definition reduces the sensitivity for the detection of such. Diastolic parameters suggest a relaxation abnormality of the left ventricle, consistent with probable normal filling pressures. Right Ventricle: The right ventricle is normal in size and function. Atria: The left atrial size is normal. Right atrial size is normal. There is no Doppler evidence for an interatrial shunt. Mitral Valve: The mitral valve leaflets appear mildly thickened, but open well. There is mild mitral annular calcification. There is mild mitral regurgitation. Aortic Valve: The aortic valve is trileaflet. The aortic valve opens well. There is no aortic valve stenosis. There is mild to moderate aortic regurgitation. Tricuspid Valve: The tricuspid valve leaflets are thin and pliable. There is trace tricuspid regurgitation. The right ventricular systolic pressure is estimated to be at least 24 mmHg based on an estimated right atrial pressure of 3 mm Hg. Pulmonic Valve: The pulmonic valve is not well seen, but is grossly normal. There is trace pulmonic regurgitation. Great Vessels: The aortic root is normal size. The dimensions of the ascending aorta are normal. The IVC is of normal diameter and collapses greater than 50% with a sniff. This suggests a low right atrial pressure of 3 mm Hg. Pericardium/ Pleura There is no pericardial effusion. There is no pleural effusion. MMode/2D Measurements & Calculations LVIDd: 4.5 cm LVOT diam: 2.0 cm LVIDs: 3.0 cm Ao root diam: 2.8 cm FS: 32.9 % asc Aorta Diam: 3.3 cm IVSd: 0.98 cm Ao Arch Diam (Prox Trans): 2.7 cm LVPWd: 1.0 cm LV meza. diameter/BSA (cm/m^2): 2.4 LV sys. diameter/BSA (cm/m^2): 1.6 LA A2 area: 15.2 cm2 RA long axis: 5.1 cm LA A4 area: 11.5 cm2 RA area: 13.4 cm2 LA length (vol): 4.6 cm RA vol: 29.9 ml LA vol: 32.4 ml RA : 16.0 ml/m2 LA vol index: 17.3 ml/m2 IVC diam: 1.9 cm RVD1 (basal): 2.9 cm RVD2 (mid): 2.8 cm TAPSE: 1.8 cm Doppler Measurements & Calculations Ao V2 max: 157.4 cm/sec LVOT Max Nate: 133.2 cm/sec Ao V2 mean: 108.2 cm/sec LV V1 max P.1 mmHg Ao max P.9 mmHg LV V1 VTI: 26.4 cm Ao mean P.2 mmHg NEHEMIAH(I,D): 2.7 cm2 Ao V2 VTI: 31.5 cm NEHEMIAH(V,D): 2.7 cm2 sev ratio: 0.84 NEHEMIAH indexed to BSA (cm^2/m^2): 1.4 AI P1/2t: 548.4 msec AI dec slope: 233.4 cm/sec2 MV E max nate: 96.8 cm/sec TR max nate: 227.8 cm/sec MV A max nate: 113.8 cm/sec TR max P.8 mmHg MV E/A: 0.85 PA V2 max: 87.7 cm/sec Med Peak E' Nate: 8.7 cm/sec PA V2 mean: 63.9 cm/sec E/E' med: 11.1 PA mean P.8 mmHg Lat Peak E' Nate: 9.4 cm/sec PA pr(Accel): 17.3 mmHg E/E' lat: 10.3 E/e' average: 10.7 MV dec time: 0.26 sec MVA(VTI): 2.2 cm2 MV V2 mean: 71.1 cm/sec SV(LVOT): 84.0 ml MV mean P.3 mmHg MV V2 VTI: 38.1 cm Reading Physician:11:22 AM
== END ==
PROVIDERS: PCP Family Medicine; Referring Provider Family Medicine; Visit Provider Family Medicine
DX: I08.0 Rheumatic disorders of both mitral and aortic valves (principal); I70.0 Atherosclerosis of aorta
CPT/HCPCS: 93306

== ENCOUNTER 2025-03-11 07:03 | Inpatient (IN) | payer MEDICARE, OTHER, SELFPAY ==
[2024-03-05 20:16] VITALS: BMI 29.1
[2025-03-03 08:55] VITALS: BMI 29.1
[2025-03-11] VITALS (20 sets, daily range): BP systolic 112–141; BP diastolic 56–78; PULSE 65–86; RESP 14–27; TEMP 35.7–36.6; O2SAT 93–100; BMI 28.8; BMI 30.9
--- NOTE | 2025-03-11 | PATH_ITS ---
[facility] Accession Number: [id number] No. of containers..01 Tissue . 01 Material submitted: . colon - SIGMOID COLON . 01 Diagnosis: SIGMOID COLON, SEGMENTAL RESECTION: Diverticulosis with associated acute on chronic serositis. Resection margins are viable. Four unremarkable lymph nodes. No evidence of malignancy. [facility] 03/16/2025 1457 Local . 01 Electronically signed: . Loly Mccauley MD, Pathologist NPI- [id number] . 01 Gross description: . Received in formalin with two identifiers and sigmoid colon, are two unoriented fragments of bowel. The first segment is 9.4 cm in length by 2.9 cm in diameter. The serosa is rai with a moderate amount of creeping adipose. The adipose extends out to 3.9 cm. One end has a jarrett margin that is inked blue and the opposite end is patent and is inked black, while the mesenteric margin is inked green. The lumen is probe patent with an area of narrowing, the luminal diameter ranging from 0.2 to 0.6 cm. The lumen contains a small amount of green mucoid material. The mucosa is pink-rai and velvety with normal-appearing folds and no lesions identified. The moseley average 0.9 cm thick with several diverticula extending up to 1.0 cm. No perforations or lesions are identified. Lymph node candidates are identified ranging from 0.4 to 0.6 cm in greatest dimension. . The second segment of colon measures 2.4 cm in length and 2.7 cm in diameter with two stapled ends differentially inked blue and orange. The lumen contains a small amount of brown mucoid material. The mucosa is rai and velvety with normal-appearing folds and no lesions identified. The moseley average 0.3 cm thick with no perforations or diverticula identified. Supervisor Transferring And Boxing sections are submitted as follows: . A1: First fragment margin. A2: Area of narrowing first fragment. A3: Diverticula first fragment. A4: Normal full-thickness sections first fragment. A5: Five intact lymph node candidates. A6-A7: Supervisor Transferring And Boxing second fragment. ([id number]) /MRV 03/12/2025 [facility]4 Local . 01 Pathologist provided ICD-10: K56.699, K57.30 . 01 CPT . 250262 Specimen Comment: A courtesy copy of this report has been sent to [phone] Performed at: [address] [address], [place], [place] [id number] MD Leandro Conroy MD Phone: [phone]
[2025-03-11] MEDS: LACTATED RINGERS 1,000 ML 84 ML IV ×3 (08:10→14:55)
--- NOTE | 2025-03-11 08:52 | PM.PREOP ---
Pre-operative Note COVID-19 COVID-19 status: Not tested Interval Note History & Physical reviewed/Exam performed by Physician: Yes Changes to H&P: No ASA Class (for procedural sedation): II
[2025-03-11] MEDS: AMPICILLIN/SULBACTAM 3 GM 3 GM in SODIUM CHLORIDE 0.9% 100 ML IV (09:00)
--- NOTE | 2025-03-11 09:45 | SUR.OPER ---
Lithotomy on padded OR bed. [place] Pad Positioner under torso. Head on pillow, arms padded and tucked at sides. Cloth strap placed over thest. Legs secured in padded yellow fins stirrups. Position approved by surgeon and anesthesia.
[2025-03-11] MEDS: BUPIVACAINE LIPOSOME 266 MG/20 ML VIAL INJ (09:57)
[2025-03-11] MEDS: BUPIVACAINE 0.5% W/ EPI (PF) 30 ML VIAL INJ (10:03)
--- NOTE | 2025-03-11 12:47 | SUR.OPER ---
12:46, called Linus, and gave an update about how surgery is going.
--- NOTE | 2025-03-11 13:44 | P.OP_ITS ---
Operative Date/Time/Diagnoses Date of procedure: 03/11/25 Time of procedure: 13:44 Pre-op diagnosis: Diverticular stricture Post-op diagnosis: same Procedure & Clinicians Procedure: Laparoscopic assisted low anterior resection Same procedure(s) as scheduled: Yes Surgeon: Burke Townsend Seeing Eye Dog Teacher: Karson Carranza Anesthesia Type: General Operative Notes Findings: Dense chronic inflammation of the mid sigmoid colon, sharply angulated upper rectum Applied: none Estimated Blood Loss (mL): 25 Procedure in detail: The patient was given Unasyn. The patient was brought to the operating room, placed on the table in the supine position and general endotracheal anesthesia was induced. A hastings catheter was inserted and the legs were placed in stirrups. The abdomen was prepped and draped in the usual fashion and a time- out was performed. We made a 1 cm infraumbilical incision and a Blair port was placed. The abdomen was insufflated in the usual manner. The camera was inserted no evidence of an injury was seen. Next we placed 5 mm ports in the right upper quadrant left, left upper quadrant, left lower quadrant and 12 mm port was placed in the right lower quadrant. We inspected the abdomen and found the thickened mid sigmoid colon. We then started to reflect the sigmoid colon along the white line of Toldt. The ureter was visualized and protected. We then continued the dissection to the splenic flexure and performed a complete takedown of the splenic flexure including the distal transverse colon. We continued the dissection down into the pelvis. The specimen demonstrated thickening and induration of the distal sigmoid consistent with the diagnosis. The Endo-FELIPE reticulating stapler was inserted through the right lower quadrant port and the upper rectum was divided. The sigmoid mesentery was divided with the LigaSure. The infraumbilical incision was extended to about 4 cm and the specimen was extracted. The sigmoid colon was divided with cautery and the anvil of a 31 mm EEA stapler was placed into the proximal colon and closed with pursestring stitch using 3-0 PDS. Next the sizers were inserted through the rectum. The rectum was noted to be quite angulated which made it hard to get to this staple line at the upper rectum. At this point I went down to perform rigid proctoscopy in found that it was quite difficult to reach all the way to the rectal staple line due to the angulation. We then returned to the dissection and dissected more of the proximal rectum and divided it about 3 cm lower. We were then able to get the 33 mm Sizer to the staple line. Next a the 31 mm EEA stapler was inserted and the colorectal anastomosis was performed. Initially the leak test was positive through a small hole along the anterior staple line. This was oversewn with 3 interrupted 3-0 silk seromuscular stitches and a leak test was repeated and was negative. Finally, Exparel was injected into the fascia. The fascia was then closed using a running 0 PDS suture. The right lower quadrant incision was closed with a [id number] 0 Vicryl stitch. The patient was awakened and brought to recovery room. Dr. Carranza and Noah Walton both provided assistance with exposure and creation of the anastomosis. Specimen: Sigmoid colon and proximal rectum EBL: 30 mL Complications: none Post-operative Condition: stable Disposition: PACU
[2025-03-11] MEDS: HYDROMORPHONE 1 MG INJ IV ×2 (14:29→14:50)
[2025-03-11] MEDS: ONDANSETRON 4 MG/2 ML INJ IV ×2 (14:31→15:59)
[2025-03-11] MEDS: LACTATED RINGERS 1,000 ML 100 ML IV ×2 (15:21→22:41)
--- NOTE | 2025-03-11 16:41 | PC.NURSE ---
Pt arrived from PACU at 1510 Alert/drowsy. Med w/Dilaudid for discomfort as well as zofran for nausea w/ fair relief. Abd w/ one larger dsg midline and 4 smaller individual dsg at each corner all CDI. IVF LR @ 100cc/hr infusing as per MD orders into RAC w/o incident Call light w/in reach, pt calls appropriately for needs. Continue w/ plan of care.
[2025-03-11] MEDS: HYDROCODONE/ACET 5/325 TABLET 1 TAB PO ×2 (18:24→22:41)
[2025-03-12] MEDS: HYDROCODONE/ACET 5/325 TABLET 1 TAB PO ×3 (02:16→22:30)
[2025-03-12 05:57] LABS: Add Manual Diff / Slide Review NO; Hematocrit 37.8 % (36-46); Hemoglobin 12.9 g/dL (12.0-16.0); Lymphocytes Absolute Auto 1500 /uL (1100-4500); Mean Corpuscular HGB Conc 34.1 % (30-36); Mean Corpuscular Hemoglobin 31.6 PG (26-34); Mean Corpuscular Volume 92.6 fL (80-100); Platelet Count 251 X10^3/uL (150-400)
[2025-03-12 06:09] LABS: Blood Urea Nitrogen 10 mg/dL (7-17); Calcium 8.4 mg/dL (8.4-10.2); Carbon Dioxide 26 mmol/L (22-32); Chloride 106 mmol/L (98-107); Estimated Glomerular Filt Rate > 60 mL/min (>60); Glucose 102 mg/dL (70-99); HEMOLYSIS < 15 (0-50); Potassium 3.9 mmol/L (3.4-5.1); Sodium 137 mmol/L (137-145)
--- NOTE | 2025-03-12 09:32 | PM.PN.IH.1 ---
Subjective Subjective Date Patient Seen: 03/12/25 Time Patient Seen: 09:32 Interval history: Pain is manageable Feels rumblings but no actual flatus yet Exam Vital Signs (past 8 hours): Oxygen Delivery Method Nasal Cannula Oxygen Flow Rate 0 Narrative Exam Narrative: Abdomen soft, somewhat distended, minimally tender Objective Labs 03/12/25 05:00 03/12/25 05:00 Labs: Laboratory Results - last 24 hr 03/12/25 05:00 WBC 9.2 RBC 4.08 Hgb 12.9 Hct 37.8 MCV 92.6 MCH 31.6 MCHC 34.1 RDW 13.4 Plt Count 251 Neut % (Auto) 72.6 Lymph % (Auto) 16.1 L [place] % (Auto) 10.8 Eos % (Auto) 0.3 L Baso % (Auto) 0.2 Neut # (Auto) 6700 Lymph # (Auto) 1500 [place] # (Auto) 1000 H Eos # (Auto) 0 Baso # (Auto) 0 Sodium 137 Potassium 3.9 Chloride 106 Carbon Dioxide 26 BUN 10 Creatinine 0.56 Estimated GFR > 60 BUN/Creatinine Ratio 17.9 Glucose 102 H Calcium 8.4 PFSH Medical History (Updated 03/03/25 @ 09:17 by Neela Mchugh RN) History of COVID-19 (~2020) Melanoma (~2004) Sleep apnea (~2017) Fractures (~1981) Measles Chicken pox Tinnitus (~1999) Cataracts, bilateral (~2008) Painful menstrual periods Heavy menstrual period Fibroids Hematuria (~2018) Colon polyps (~2013) Hypertension (~1999) Skin cancer (~2004) Cervical spine fracture Hearing loss (~2008) Melanoma Back pain Arthritis Bladder polyp Urinary urgency Urinary frequency Incontinence Interstitial cystitis Impaired vision 1st degree AV block Surgical History (Updated 03/03/25 @ 09:12 by Neela Mchugh RN) History of surgery (~12/2024) Hx of appendectomy (03/06/24) History of bladder surgery (08/2005) History of bilateral salpingo-oophorectomy (~05/22/19) S/P laparoscopic supracervical hysterectomy (~05/22/19) Anesthesia History of hysteroscopy (~04/2014) History of total knee replacement (~12/2017) S/P excision of lipoma Perforated eardrum (~02/2017) H/O total knee replacement (06/2017) S/P bunionectomy Arm fracture, left S/P left knee arthroscopy Status post dilation and curettage (05/15/14) Status post dilation and curettage History of third molar tooth extraction Family History Father Cancer Mother Stroke Brother Parkinson's disease Social History household members: spouse Smoking Status: Never smoker alcohol intake: current Assessment & Plan Assessment and plan (1) Stricture of sigmoid colon: Status: Acute Plan Await flatus to advance diet Time-Based Coding :: [TOTAL MINUTES] spent with patient and on the chart (including review of chart, obtaining history, exam, reviewing outside data, placing orders, documenting exam and treatment plan, and counseling patient) on [DATE]. 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
[2025-03-12] MEDS: ACETAMINOPHEN 325 MG TABLET 650 MG PO ×2 (10:55→17:14)
[2025-03-12 12:30] VITALS: BP 133/70; RESP 16; TEMP 36.2; O2SAT 94
--- NOTE | 2025-03-12 14:36 | CM.DANOTE ---
Patient is a 79 yo female who was admitted INPT Status on 03/11/25 for Lap Resection. Pt has MCR and PRE DIM for insurance and her PCP is Dr. Sundeep Man in [place]. EMR was reviewed. Per Surgeon, pt with hx of appendicitis and admitted for Lap Resection for diverticular stricture. Pt tolerated procedure well and to start on clear liquids today to see how she can tolerate slowly advancing diet. Per RN, pt has been walking halls and independent in room and no PT/OT needs at this time. Pt last admitted in February 2024 last year for appendicitis and was able to discharge home with spouse and outpt f/u. SW met bedside with pt, sleeping soundly, and spouse Tori and explained role and spouse hopeful to keep pt sleeping but confirmed they live at home in [place] and both are active and independent at baseline. Pt's POA is spouse and no hx of HH or SNF. Preference is home when medically stable and spouse confirms he can transport her home at d/c and assist as needed. Spouse does not anticipate any further needs at d/c pending pt's progress. Plan: SW to follow for plan of discharge home with spouse assist if able to tolerate slowly advancing diet and any further identified discharge planning needs. EDWIN Bergman Discharge Planning/Care Management CM Discharge Assessment Start: 03/11/25 07:21 Freq: Status: Active Protocol: Document 03/12/25 14:34 BF (Rec: 03/12/25 14:36 BF [id number]) Discharge Planning Assessment Assigned Discharge EDWIN Romero Precision Dancer DPOA/Assigned spouse Karson Designee Name Contact Information [phone] Advance Directives? Yes Advance Directives Yes on File History Provided By Patient,Significant Other,Medical Record Has Patient been No admitted in last 30 days? Comment last admit a year ago in February 2024 for appendicitis and discharged home Prior Living House Arrangements Household Members spouse Type of Drives own vehicle transporation used prior to admit Independent with ADL Yes 's Is patient alert and Yes oriented? Caregiver for No Another Patient/Family OP PT Therapy Preference Barriers to No Discharge Discharge Plan Home Transportation Spouse Arrangement Referrals Initiated None needed Additional Comment Pending progress with advancing diet Whiteboard Updated Yes in Patient Room with name and ext. # of Weed Controller Review Status In Process Please Provide Date 03/12/25 Initial DC Assessment Was Performed Next Review Type Continued Stay Review Pre-Anesthesia Assessment Start: 03/03/25 08:55 Freq: Status: Complete Protocol: Document 03/03/25 08:55 CAB (Rec: 03/03/25 09:32 CAB [id number]) Pre-Anesthesia Assessment PAC Comment Phone assess 03/03/25 Patient Information Phone Assessment Reviewed Via Assessment Completed Patient With Primary Care Sundeep Man Provider Seen Specialist in Yes Last 12 Months Specialist Seen General surgeon,Orthopedist Primary Language Angolan Preferred Language Angolan Configuration Management Administrator Required No Height 165.1 cm Weight 79.379 kg Body Mass Index (BMI 29.1 ) Hearing Ability Hearing Impaired,Use of Hearing Aid Visual Assist Glasses Dentition Type Teeth, Natural Present Barriers to Learning Auditory,Visual Other Aids No Hx Anesthesia No Reactions Hx Family Anesthesia No Reaction Hx Malignant No Hyperthermia Hx Blood No Transfusions Hx Blood Transfusion No Reaction Anesthesia Review No Requested Relationship Consultant No alcohol intake current alcohol intake 1-2 drinks per day frequency Smoking Status Never smoker Substance Use Type [ does not use #R] Pain Present Denied Pain History of Falling ( No Recent or History of ) Patient is No completely paralyzed or completely immobile Mental Status Oriented to own ability Is patient on oxygen No ? Does patient have No WALTON/SOB Hx Sleep Apnea Yes CPAP/BIPAP use prescribed and used routinely Will Bring CPAP/ Yes BIPAP DOS Currently Taking a No Beta [place] Can You Climb a No Flight of Stairs Without SOB Hx Chest Pain No Hx SOB No Hx Syncope or No Dizziness Anti-Coagulant Yes: ASA 81mg-advised to hold 7 days per surgeon Therapy Has a Landscape Account Manager No Cardiac Testing No Hx Pacemaker/ICD No Pacemaker Rep No Required? Cardiac Clearance No Received Diet Type At Home Regular Dysphagia No Gastrointestinal Constipation Symptoms Urinary Catheter No Present Hx Urinary Self No Catheterization Diabetes No Patient No Lactating No Hx Drug Resistant No Organism Presence of External Yes: both knees, r foot or Internal Medical Devices Month and year 2022 received flu vaccine Received a COVID Yes vaccine? Marital Status Lives With spouse Support System Spouse Does the Patient Yes Have Assistance After Surgery Patient Discharge Return Home Plan Description Comment Pt advised 4 day length of stay per surgeon Feels Safe in Yes Current Environment Been Physically Hurt No or Threatened By a Person in Current Environment Do you have thoughts None of harming yourself or others? Are you currently No considering suicide? Do you have a plan No Plan to hurt yourself or others? Do You Have Any No Spiritual Beliefs That May Affect Your HC Choices? Do You Have Any No Cultural Practices That May Affect Your HC Choices? Comment L[employer] Day Who Can We Speak to Family, friends About Patient's Care Identifying Code for Declines to issue Release of Patient Information Health Care Proxy/ Linus () Next of Kin Health Care Proxy [phone] Phone Number Emergency Contact Linus Gavin (spouse) Name Emergency Contact [phone] Phone Number Advance Directives? Yes Advance Directives Yes on File Power of Process Improvement Specialist Yes Power of Process Improvement Specialist Linus Gavin Name Power of Process Improvement Specialist [phone] Phone Number PAC Instructions Bring CPAP/BIPAP,Durable medical equipment,Medications to take/avoid,No ETOH/petroleum product on skin DOS,NPO ,Pre-op antibiotic,Pre-surgical wash,Sturdy shoes/ comfortable clothes,Do not bring valuables and remove jewelry
--- NOTE | 2025-03-12 15:37 | PC.NURSE ---
Pt A/O Ambulated in hallways w/o isues. Abd rounded, faint B T Dsg x 4 CDI w/only small spot old drainage on middle IVF now SL Stable post op status. Call light w/in reach, pt calls appropriately for needs. Continue w/plan of care.
[2025-03-12 19:41] VITALS: BP 152/66; PULSE 78; RESP 18; TEMP 36.4; O2SAT 91
[2025-03-13] MEDS: ACETAMINOPHEN 325 MG TABLET 650 MG PO ×3 (06:37→17:55)
--- NOTE | 2025-03-13 07:50 | P.PN_ITS ---
Subjective Subjective Date Patient Seen: 03/13/25 Time Patient Seen: 07:50 Interval history: Passing gas Minimal pain Exam Vital Signs (past 8 hours): Oxygen Delivery Method Nasal Cannula Oxygen Flow Rate 0 Const General: No acute distress Objective Labs 03/12/25 05:00 03/12/25 05:00 [facility] Medical History (Updated 03/03/25 @ 09:17 by Neela Mchugh RN) History of COVID-19 (~2020) Melanoma (~2004) Sleep apnea (~2017) Fractures (~1981) Measles Chicken pox Tinnitus (~1999) Cataracts, bilateral (~2008) Painful menstrual periods Heavy menstrual period Fibroids Hematuria (~2018) Colon polyps (~2013) Hypertension (~1999) Skin cancer (~2004) Cervical spine fracture Hearing loss (~2008) Melanoma Back pain Arthritis Bladder polyp Urinary urgency Urinary frequency Incontinence Interstitial cystitis Impaired vision 1st degree AV block Surgical History (Updated 03/03/25 @ 09:12 by Neela Mchugh RN) History of surgery (~12/2024) Hx of appendectomy (03/06/24) History of bladder surgery (08/2005) History of bilateral salpingo-oophorectomy (~05/22/19) S/P laparoscopic supracervical hysterectomy (~05/22/19) Anesthesia History of hysteroscopy (~04/2014) History of total knee replacement (~12/2017) S/P excision of lipoma Perforated eardrum (~02/2017) H/O total knee replacement (06/2017) S/P bunionectomy Arm fracture, left S/P left knee arthroscopy Status post dilation and curettage (05/15/14) Status post dilation and curettage History of third molar tooth extraction Family History Father Cancer Mother Stroke Brother Parkinson's disease Social History household members: spouse Smoking Status: Never smoker alcohol intake: current Assessment & Plan Assessment and plan (1) Stricture of sigmoid colon: Status: Acute Assessment & Plan narrative: Regular diet Time-Based Coding :: [TOTAL MINUTES] spent with patient and on the chart (including review of chart, obtaining history, exam, reviewing outside data, placing orders, documenting exam and treatment plan, and counseling patient) on [DATE]. 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
[2025-03-13 08:00] VITALS: BP 135/68; PULSE 75; RESP 15; TEMP 36.9; O2SAT 93
[2025-03-13] MEDS: ATORVASTATIN 20 MG TABLET 10 MG PO (09:34)
[2025-03-13] MEDS: ENOXAPARIN 40 MG/0.4 ML SYRINGE SUBCUT (09:34)
[2025-03-13] MEDS: AMLODIPINE 5 MG TABLET PO (09:34)
--- NOTE | 2025-03-13 10:21 | CM.DPNOTE ---
DCP Continued: Reviewed EMR and team rounds for pt?s medical status. Per Surgeon, pt passing flatus and minimal to no pain. Per RN, pt only receiving Tylenol for pain and independent in room. Advancing diet slowly. No discharge needs identified at this time. Plan: Anticipating dc home with spouse on 03/14 or when medically cleared. CM Team will continue to follow for coordination of discharge plans. JUSTYN Kendrick
[2025-03-13] MEDS: BENZOCAINE/MENTHOL 1 LOZ PKT 1 EACH PO (11:47)
[2025-03-13 20:00] VITALS: BP 128/67; PULSE 76; RESP 18; TEMP 36.7; O2SAT 92
[2025-03-13] MEDS: TAMSULOSIN 0.4 MG CAPSULE PO (20:53)
[2025-03-13] MEDS: AMITRIPTYLINE 25 MG TABLET 50 MG PO (20:53)
[2025-03-13] MEDS: SODIUM CHLORIDE 0.9% FLUSH 10 ML IV (20:53)
[2025-03-13] MEDS: HYDROCODONE/ACET 5/325 TABLET 1 TAB PO (22:09)
[2025-03-14] MEDS: ACETAMINOPHEN 325 MG TABLET 650 MG PO (07:37)
[2025-03-14 08:00] VITALS: BP 116/68; PULSE 78; RESP 15; TEMP 36.2; O2SAT 93
[2025-03-14] MEDS: AMLODIPINE 5 MG TABLET PO (08:39)
[2025-03-14] MEDS: SODIUM CHLORIDE 0.9% FLUSH 10 ML IV (08:40)
--- NOTE | 2025-03-14 09:37 | P.PN_ITS ---
Subjective Subjective Date Patient Seen: 03/14/25 Time Patient Seen: 09:38 Interval history: Postop day 3 from a laparoscopic assisted sigmoid colectomy. Patient is doing well and tolerating a regular diet. She is passing flatus. Exam Vital Signs (past 8 hours): - 03/14/25 08:00 Temperature 97.2 F L Pulse Rate 78 Respiratory Rate 15 Blood Pressure 116/68 Pulse Oximetry 93 Oxygen Flow Rate 0 Oxygen Delivery Method Room Air Oxygen Flow Rate 0 Narrative Exam Narrative: Lungs are clear to auscultation bilaterally Abdomen is soft, nontender, with active bowel sounds Dressings are dry and intact Objective Labs 03/12/25 05:00 03/12/25 05:00 [facility] Medical History (Updated 03/03/25 @ 09:17 by Neela Mchugh RN) History of COVID-19 (~2020) Melanoma (~2004) Sleep apnea (~2017) Fractures (~1981) Measles Chicken pox Tinnitus (~1999) Cataracts, bilateral (~2008) Painful menstrual periods Heavy menstrual period Fibroids Hematuria (~2018) Colon polyps (~2013) Hypertension (~1999) Skin cancer (~2004) Cervical spine fracture Hearing loss (~2008) Melanoma Back pain Arthritis Bladder polyp Urinary urgency Urinary frequency Incontinence Interstitial cystitis Impaired 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 degree AV block Surgical History (Updated 03/03/25 @ 09:12 by Neela Mchugh RN) History of surgery (~12/2024) Hx of appendectomy (03/06/24) History of bladder surgery (08/2005) History of bilateral salpingo-oophorectomy (~05/22/19) S/P laparoscopic supracervical hysterectomy (~05/22/19) Anesthesia History of hysteroscopy (~04/2014) History of total knee replacement (~12/2017) S/P excision of lipoma Perforated eardrum (~02/2017) H/O total knee replacement (06/2017) S/P bunionectomy Arm fracture, left S/P left knee arthroscopy Status post dilation and curettage (05/15/14) Status post dilation and curettage History of third molar tooth extraction Family History Father Cancer Mother Stroke Brother Parkinson's disease Social History household members: spouse Smoking Status: Never smoker alcohol intake: current Assessment & Plan Assessment and plan (1) Stricture of sigmoid colon: Status: Acute Plan Discharge to home. Dr. Townsend has made arrangements for her follow-up. Time-Based Coding :: [TOTAL MINUTES] spent with patient and on the chart (including review of chart, obtaining history, exam, reviewing outside data, placing orders, documenting exam and treatment plan, and counseling patient) on [DATE]. 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
== END 2025-03-14 11:14 | disposition home or self-care (01) | DRG 331 ==
PROVIDERS: Admitting Provider Surgery; PCP Family Medicine; Referring Provider Surgery; Visit Provider Surgery
PROC: 0DTE0ZZ Resection of Large Intestine, Open Approach (ICD-10-PCS; principal; 2025-03-11 08:45)
DX: K56.699 Other intestinal obstruction unspecified as to partial versus complete obstruction (principal)
CPT/HCPCS: 36415; 80048; 85025; J0295; J0330; J0666; J1100; J1171; J1650; J2405; J2704; J3010

== ENCOUNTER → 2025-05-12 11:44 | Outpatient (CLI) | payer MEDICARE, OTHER, SELFPAY ==
[2025-03-11 15:13] VITALS: BMI 30.9
--- NOTE | 2025-05-12 11:45 | DI.MG.S_ITS ---
MM screening mammo BI: 05/12/2025. BI-RADS: 1 CLINICAL: 79-year old female for bilateral screening mammogram. Tyrer-Cuzick lifetime risk of 2.3%. No personal or first-degree family history of breast cancer. PRIOR EXAMS 05/08/2024, 04/25/2023, 04/17/2022, 04/21/2021. MAMMOGRAPHY TECHNIQUE: 2D and 3D (tomosynthesis) digital mammographic views obtained, with additional images as needed for full coverage. Current study was also evaluated with a Computer Aided Detection (CAD) system. DENSITY B. There are scattered areas of fibroglandular density. MAMMOGRAPHY FINDINGS Bilateral: No suspicious mass, asymmetry, microcalcification, or other abnormality seen. IMPRESSION: * No evidence of malignancy. RECOMMENDATIONS Bilateral * Annual screening mammography. OVERALL ASSESSMENT CATEGORY BI-RADS-1: Negative. The [employer] recommends annual screening mammography beginning at age 40 for women with average risk of breast cancer. ELECTRONICALLY SIGNED: Rachel Sultana M.D. on 05/12/2025 at 11:03:53 PM PT Interpreting Station ID: [id number]
== END ==
PROVIDERS: PCP Family Medicine; Referring Provider Family Medicine; Visit Provider Family Medicine
DX: Z12.31 Encounter for screening mammogram for malignant neoplasm of breast (principal)
CPT/HCPCS: 77063; 77067